=== PATIENT | male | born 1950 | race Caucasian/White ===

== ENCOUNTER 2019-01-30 20:38 | Emergency (ER) | payer OTHER ==
[2019-01-30] MEDS ORDERED: SILVER NITRATE 1 APPL TOP ONE (20:59)
[2019-01-30 21:57] LABS: Albumin 3.6 g/dL (3.4-5.0); Bilirubin Total 0.5 mg/dL (0.2-1.0); Potassium 3.4 mmol/L (3.5-5.1); Protein, Total 6.8 g/dL (6.4-8.2)
[2019-01-30 22:20] LABS: Protime INR 1.69
[2019-01-30 22:37] LABS: Absolute Lymphocytes (CBC) 1.1 K/uL (0.7-4.9); Absolute Monocytes 0.6 K/uL (0.1-1.3); Absolute Neutrophil 5.6 K/uL (1.8-8.0); Basophils % 0.6 % (0-1.3); Eosinophils % 2.9 % (0-4.4); Hematocrit 23.6 % (39.6-49.0); Lymphocytes % 14.6 % (15.3-44.8); MPV 7.3 fL (7.6-11.3); Monocytes % 7.8 % (3.3-12.3); RBC Red Blood Cell Count 2.83 M/uL (4.33-5.43)
--- NOTE | 2019-01-30 22:39 | ER ---
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 Pt has had nose bleeds before and they have used silver nitrate sticks. Pt is on Warfarin 1.5 mg/day. Transition of care: patient was not received from another setting of care. Onset of symptoms was January 30, 2019 at 17:20. Risk Assessment: Do you want to hurt yourself or someone else? Patient reports no desire to harm self or others. Initial Sepsis Screen: Does the patient meet any 2 criteria? No. Patient's initial sepsis screen is negative. Does the patient have a suspected source of infection? No. Patient's initial sepsis screen is negative. Care prior to arrival: None. 20:53 Method Of Arrival: Ambulatory tl2 20:53 Acuity: BRETT 3 tl2 Triage Assessment: 21:01 General: Appears in no apparent distress. comfortable, Behavior is calm, cooperative, tl2 appropriate for age. Pain: Denies pain. Historical: - Allergies: 20:59 Codeine; tl2 20:59 Fentanyl; tl2 - Home Meds: 20:59 aspirin 81 mg Oral chew 1 tab once daily [Active]; carvedilol 25 mg Oral tab 1 tab tl2 daily [Active]; Crestor 5 mg Oral tab 1 tab once daily [Active]; fenofibrate 150 mg Oral cap 1 cap once daily [Active]; ferrous sulfate 325 mg (65 mg iron) Oral tab daily [Active]; furosemide 40 mg Oral tab 1 tab once daily [Active]; Lantus 100 unit/mL Sub-Q soln 26 unit daily [Active]; liraglutide subcutaneous subcutaneous 0.3 mL once daily [Active]; lisinopril 5 mg Oral tab 1 tab twice a day [Active]; Multiple Vitamins Oral tab daily [Active]; potassium chloride 20 mEq Oral TbTQ 1 tab once daily [Active]; rosuvastatin 5 mg Oral tab 1 tab once daily [Active]; tamsulosin 0.4 mg Oral cp24 1 cap once daily [Active]; Warfarin 1.5 mg Oral once daily [Active]; victoza 1.8 mg daily [Active]; - PMHx: 20:59 CAD; CHF; Diabetes - IDDM; Hyperlipidemia; Hypertension; tl2 - PSHx: 20:59 LVAD; CABG; pacemaker; tl2 - Immunization history:: Adult Immunizations up to date. - Social history:: Smoking status: Patient/guardian denies using tobacco. - Ebola Screening: : No symptoms or risks identified at this time. - Family history:: not pertinent. Screenin:01 Abuse screen: Denies threats or abuse. Nutritional screening: No deficits noted. tl2 Tuberculosis screening: No symptoms or risk factors identified. Fall Risk Secondary diagnosis (15 points) Gait- Weak (10 pts.). Assessment: 21:10 General: Appears in no apparent distress. comfortable, Behavior is calm, cooperative, tl2 appropriate for age. Pain: Denies pain. Neuro: Level of Consciousness is awake, alert, obeys commands, Oriented to person, place, time, situation. Cardiovascular: Denies chest pain, LVAD in placed. Respiratory: Airway is patent Respiratory effort is even, unlabored, Respiratory pattern is regular, symmetrical. GI: No signs and/or symptoms were reported involving the gastrointestinal system. : No signs and/or symptoms were reported regarding the genitourinary system. EENT: Nares with bleeding noted bilaterally. Derm: Skin is pale. 22:27 Reassessment: Patient appears in no apparent distress at this time. Patient and/or tl2 family updated on plan of care and expected duration. Pain level reassessed. Patient is alert, oriented x 3, equal unlabored respirations, skin warm/dry/pink. 23:30 Reassessment: Patient appears in no apparent distress at this time. Patient and/or tl2 family updated on plan of care and expected duration. Pain level reassessed. Patient is alert, oriented x 3, equal unlabored respirations, skin warm/dry/pink. 01/31 00:30 Reassessment: Patient appears in no apparent distress at this time. Patient and/or tl2 family updated on plan of care and expected duration. Pain level reassessed. Patient is alert, oriented x 3, equal unlabored respirations, skin warm/dry/pink. 01:14 Reassessment: first unit of blood started at 0114, see transfusion record for vitals. tl2 Reassessment: awaiting transport. Vital Signs: 01/30 20:50 BP 115 / 86; Pulse 73; Resp 18; Temp 97.9; Pulse Ox 100% on R/A; Weight 87.54 kg; tl2 Height 5 ft. 7 in. (170.18 cm); Pain 0/10; 22:24 BP 117 / 96; Pulse 69; Resp 18; Pulse Ox 96% on R/A; tl2 23:26 BP 124 / 101; Pulse 75; Resp 18; Pulse Ox 96% on R/A; tl2 01/31 00:24 BP 116 / 83; Pulse 73; Resp 24; Pulse Ox 99% on R/A; tl2 01:30 BP 106 / 86; Pulse 73; Resp 19; Temp 98.5; Pulse Ox 98% on R/A; tl2 01/30 20:50 Body Mass Index 30.23 (87.54 kg, 170.18 cm) tl2 ED Course: 01/30 20:41 Patient arrived in ED. es 20:50 Arm band placed on right wrist. tl2 20:53 Annabelle Horne, RN is Primary Nurse. tl2 20:55 Triage completed. tl2 21:01 Patient has correct armband on for positive identification. Bed in low position. Call tl2 light in reach. Side rails up X2. Adult w/ patient. 21:05 Cholo Humphreys MD is Attending Physician. kimberly 22:15 Inserted saline lock: 20 gauge in left forearm, using aseptic technique. Blood tl2 collected. 22:24 XRAY Chest (1 view) In Process Unspecified. EDMS 22:39 Notified ED physician of a critical lab result(s). hemoglobin 7.8. fc Administered Medications: 22:42 Not Given (Physician Discretion): NS 0.9% 1000 ml IV at 75 ml/hr continuous tl2 23:01 Drug: ProTONIX 40 mg Route: IVP; Site: left forearm; tl2 01/31 01:58 Follow up: Response: No adverse reaction tl2 Medication: 01:14 Blood products: PRBCs X 1 unit given. See transfusion record. tl2 Outcome: 01/30 22:38 ER care complete, transfer ordered by . kimberly 01/31 01:58 Patient left the ED. tl2 Signatures: Dispatcher [employer] Cholo Nelson MD MD cha Salyer, Janey Burt RN RN Annabelle Sweeney RN RN tl2 Corrections: (The following items were deleted from the chart) 01/30 21:00 20:50 BP 115 / 86; Pulse 73bpm; Resp 18bpm; Pulse Ox 100% RA; Temp 97.9F; tl2 tl2 22:27 21:10 General: see triage assessment. tl2 tl2
--- NOTE | 2019-01-30 22:39 | EDPHYS ---
Physician Documentation [facility] Name: Rod Shrestha Age: 68 yrs Sex: Male : 1950 Arrival Date: 01/30/2019 Time: 20:41 Bed 2 Private MD: ED Cholo Giles HPI: 01/30 21:16 This 68 yrs old Male presents to ER via Ambulatory with complaints of Nose kimberly Bleed. 21:16 The patient presents with a nose bleed. Onset: The symptoms/episode began/occurred just kimberly prior to arrival. Modifying factors: The symptoms are alleviated by nothing. the symptoms are aggravated by nothing. Associated signs and symptoms: The patient has no apparent associated signs or symptoms. Severity of symptoms: At their worst the symptoms were. The patient has not experienced similar symptoms in the past. Historical: - Allergies: 20:59 Codeine; tl2 20:59 Fentanyl; tl2 - Home Meds: 20:59 aspirin 81 mg Oral chew 1 tab once daily [Active]; carvedilol 25 mg Oral tab 1 tab tl2 daily [Active]; Crestor 5 mg Oral tab 1 tab once daily [Active]; fenofibrate 150 mg Oral cap 1 cap once daily [Active]; ferrous sulfate 325 mg (65 mg iron) Oral tab daily [Active]; furosemide 40 mg Oral tab 1 tab once daily [Active]; Lantus 100 unit/mL Sub-Q soln 26 unit daily [Active]; liraglutide subcutaneous subcutaneous 0.3 mL once daily [Active]; lisinopril 5 mg Oral tab 1 tab twice a day [Active]; Multiple Vitamins Oral tab daily [Active]; potassium chloride 20 mEq Oral TbTQ 1 tab once daily [Active]; rosuvastatin 5 mg Oral tab 1 tab once daily [Active]; tamsulosin 0.4 mg Oral cp24 1 cap once daily [Active]; Warfarin 1.5 mg Oral once daily [Active]; victoza 1.8 mg daily [Active]; - PMHx: 20:59 CAD; CHF; Diabetes - IDDM; Hyperlipidemia; Hypertension; tl2 - PSHx: 20:59 LVAD; CABG; pacemaker; tl2 - Immunization history:: Adult Immunizations up to date. - Social history:: Smoking status: Patient/guardian denies using tobacco. - Ebola Screening: : No symptoms or risks identified at this time. - Family history:: not pertinent. ROS: 21:16 Constitutional: Negative for fever, chills, and weight loss, Eyes: Negative for injury, kimberly pain, redness, and discharge, Neck: Negative for injury, pain, and swelling, Cardiovascular: Negative for chest pain, palpitations, and edema, Respiratory: Negative for shortness of breath, cough, wheezing, and pleuritic chest pain, Abdomen/GI: Negative for abdominal pain, nausea, vomiting, diarrhea, and constipation, Back: Negative for injury and pain, : Negative for injury, bleeding, discharge, and swelling, MS/Extremity: Negative for injury and deformity, Skin: Negative for injury, rash, and discoloration, Neuro: Negative for headache, weakness, numbness, tingling, and seizure, Psych: Negative for depression, anxiety, suicide ideation, homicidal ideation, and hallucinations, Allergy/Immunology: Negative for hives, rash, and allergies, Endocrine: Negative for neck swelling, polydipsia, polyuria, polyphagia, and marked weight changes. 21:16 ENT: Positive for nose bleed. Exam: 21:16 Constitutional: This is a well developed, well nourished patient who is awake, alert, kimberly and in no acute distress. Head/Face: Normocephalic, atraumatic. Eyes: Pupils equal round and reactive to light, extra-ocular motions intact. Lids and lashes normal. Conjunctiva and sclera are non-icteric and not injected. Cornea within normal limits. Periorbital areas with no swelling, redness, or edema. Neck: Trachea midline, no thyromegaly or masses palpated, and no cervical lymphadenopathy. Supple, full range of motion without nuchal rigidity, or vertebral point tenderness. No Meningismus. Chest/axilla: Normal chest wall appearance and motion. Nontender with no deformity. No lesions are appreciated. Cardiovascular: Regular rate and rhythm with a normal S1 and S2. No gallops, murmurs, or rubs. Normal PMI, no JVD. No pulse deficits. Respiratory: Lungs have equal breath sounds bilaterally, clear to auscultation and percussion. No rales, rhonchi or wheezes noted. No increased work of breathing, no retractions or nasal flaring. Abdomen/GI: Soft, non-tender, with normal bowel sounds. No distension or tympany. No guarding or rebound. No evidence of tenderness throughout. Back: No spinal tenderness. No costovertebral tenderness. Full range of motion. Skin: Warm, dry with normal turgor. Normal color with no rashes, no lesions, and no evidence of cellulitis. MS/ Extremity: Pulses equal, no cyanosis. Neurovascular intact. Full, normal range of motion. Neuro: Awake and alert, GCS 15, oriented to person, place, time, and situation. Cranial nerves II-XII grossly intact. Motor strength 5/5 in all extremities. Sensory grossly intact. Cerebellar exam normal. Normal gait. Psych: Awake, alert, with orientation to person, place and time. Behavior, mood, and affect are within normal limits. 21:16 ENT: Nose: Nasal mucosa: Dried blood. edematous. Vital Signs: 20:50 BP 115 / 86; Pulse 73; Resp 18; Temp 97.9; Pulse Ox 100% on R/A; Weight 87.54 kg; tl2 Height 5 ft. 7 in. (170.18 cm); Pain 0/10; 22:24 BP 117 / 96; Pulse 69; Resp 18; Pulse Ox 96% on R/A; tl2 23:26 BP 124 / 101; Pulse 75; Resp 18; Pulse Ox 96% on R/A; tl2 03/06 00:24 BP 116 / 83; Pulse 73; Resp 24; Pulse Ox 99% on R/A; tl2 01:30 BP 106 / 86; Pulse 73; Resp 19; Temp 98.5; Pulse Ox 98% on R/A; 2 03 20:50 Body Mass Index 30.23 (87.54 kg, 170.18 cm) tl2 Procedures: 01/30 21:16 Epistaxis treatment: A moderate amount of bleeding noted from left nare. [facility] 22:33 Epistaxis treatment: Treated using anterior packing, Vaseline gauze, Bleeding stopped. [facility] MDM: 21:05 Patient medically screened. [facility] 21:16 Data reviewed: vital signs, nurses notes, lab test result(s). [facility] 01/30 21:16 Order name: CBC with Diff [facility] 01/30 21:16 Order name: Comprehensive Metabolic Panel; Complete Time: 22:10 [facility] 01/30 21:16 Order name: PT-INR; Complete Time: 22:36 [facility] 01/30 22:11 Order name: Basic Metabolic Panel [facility] 01/30 22:11 Order name: LFT's [facility] 01/30 22:11 Order name: Magnesium [facility] 01/30 22:11 Order name: NT PRO-BNP [facility] 01/30 22:11 Order name: Troponin (emerg Dept Use Only) [facility] 01/30 22:11 Order name: XRAY Chest (1 view) [facility] 01/30 22:11 Order name: Type And Screen [facility] 01/30 23:08 Order name: ABO/RH no charge [facility] 01/31 00:47 Order name: Packed RBC Leukored -1 [facility] 01/30 21:32 Order name: Dressing - Wound; Complete Time: 22:42 [facility] 01/30 21:32 Order name: Gloves, Sterile; Complete Time: 21:36 [facility] 01/30 21:32 Order name: Setup Suture Tray; Complete Time: 21:36 [facility] 01/30 22:11 Order name: EKG; Complete Time: 22:13 [facility] 01/30 22:11 Order name: Cardiac monitoring; Complete Time: 22:42 [facility] 01/30 22:11 Order name: EKG - Nurse/Tech; Complete Time: 22:41 [facility] 01/30 22:11 Order name: IV Saline Lock; Complete Time: 22:12 [facility] 01/30 22:11 Order name: Labs collected and sent; Complete Time: 22:13 [facility] 01/30 22:11 Order name: O2 Per Protocol; Complete Time: 22:13 [facility] 01/30 22:11 Order name: O2 Sat Monitoring; Complete Time: 22:13 [facility] 01/30 22:35 Order name: Transfuse; Complete Time: 01:56 [facility] Administered Medications: 22:42 Not Given (Physician Discretion): NS 0.9% 1000 ml IV at 75 ml/hr continuous tl2 23:01 Drug: ProTONIX 40 mg Route: IVP; Site: left forearm; tl2 01/31 01:58 Follow up: Response: No adverse reaction tl2 Disposition: 01/30/19 22:38 Transfer ordered to [facility]. Diagnosis are Epistaxis, Anemia, unspecified, Unspecified kidney failure, Unspecified combined systolic (congestive) and diastolic (congestive) heart failure - with LVAT, Hypokalemia. - Reason for transfer: Higher level of care. - Accepting physician is to buddhism, chf team. - Condition is Fair. - Problem is new. - Symptoms have improved. Signatures: Dispatcher [employer] EDCholo Wagner MD MD cha Knox, Taylor, RN RN tl2 Corrections: (The following items were deleted from the chart) 01/30 22:38 22:38 01/30/2019 22:38 Transfer ordered to [facility]. Diagnosis is kimberly Epistaxis; Anemia, unspecified; Unspecified kidney failure; Unspecified combined systolic (congestive) and diastolic (congestive) heart failure - with LVAT. Reason for transfer: Higher level of care. Accepting physician is to buddhism, [facility] team. Condition is Fair. Problem is new. Symptoms have improved. kimberly 01/31 01:58 01/30 22:38 01/30/2019 22:38 Transfer ordered to [facility]. tl2 Diagnosis is Epistaxis; Anemia, unspecified; Unspecified kidney failure; Unspecified combined systolic (congestive) and diastolic (congestive) heart failure - with LVAT; Hypokalemia. Reason for transfer: Higher level of care. Accepting physician is to buddhism, chf team. Condition is Fair. Problem is new. Symptoms have improved. kimberly
[2019-01-30] MEDS ORDERED: PANTOPRAZOLE 40 MG INJ ONE (23:08)
[2019-01-30 23:10] LABS: ALT/SGPT 14 U/L (12-78); AST/SGOT 14 U/L (15-37); Albumin 3.7 g/dL (3.4-5.0); Alkaline Phosphatase 50 U/L (45-117); BUN Blood Urea Nitrogen 25 mg/dL (7-18); Bicarbonate 28 mmol/L (21-32); Bilirubin Direct 0.2 mg/dL (0-0.2); Bilirubin Total 0.4 mg/dL (0.2-1.0); Glucose Level 260 mg/dL (74-106); Magnesium 2.3 mg/dL (1.8-2.4); NT PRO-BNP 2086 pg/mL (<125); Potassium 3.5 mmol/L (3.5-5.1); Protein, Total 6.9 g/dL (6.4-8.2); Sodium Level 140 mmol/L (136-145); Troponin (Emerg Dept Use Only) < 0.02 ng/mL (0.0-0.045)
[2019-01-31] MEDS ORDERED: NA CHLORIDE 0.9% 250 ML ONE (01:20)
[2019-01-31 02:09] VITALS: BP 106/86; TEMP 98.5; O2SAT 98
--- NOTE | 2019-01-31 08:19 | RAD REPORT ---
EXAM DESCRIPTION: RAD - Chest Single View - 01/30/2019 10:24 pm CLINICAL HISTORY: COUGH Chest pain. COMPARISON: CHEST SINGLE VIEW dated 08/07/2014; CHEST SINGLE VIEW dated 04/28/2014 FINDINGS: Portable technique limits examination quality. Mild elevation of the right hemidiaphragm is seen, chronic. Blunting of both costophrenic angles like ly represents pleural effusions or pleural thickening. The lungs are clear of acute infiltrate. Heart is moderately enlarged in size with dual lead pacer device present. No displaced fractures.Sternotom y wires present. IMPRESSION: No acute intrathoracic process suspected.
--- NOTE | 2019-01-31 12:36 | EKG ---
Test Date: 2019-01-30 Test Time: 22:33:04 [place]ock Judge: CAROLEE MEASUREMENT RESULTS: Intervals: Rate: 72 LA: QRSD: 162 QT: 478 QTc: 523 [place]: P: LA: QRS: -52 T: 132 INTERPRETIVE STATEMENTS: Atrial-sensed ventricular-paced rhythm tracking sinus rhythm with premature atrial complexes Abnormal ECG Compared to ECG 08/09/2014 15:27:28 Atrial-sensed ventricular-paced rhythm is now present Electronically Signed On 01-31-19 12:36:24 [employer]ANT [employer] by Epifanio Ortiz
== END 2019-01-31 01:58 | disposition short-term general hospital (02) ==
LOC: ER 20:38
PROC: 2Y41X5Z Packing of Nasal Region using Packing Material (ICD-10-PCS; principal; 2019-01-31)
PROC: 30233N1 Transfusion of Nonautologous Red Blood Cells into Peripheral Vein, Percutaneous Approach (ICD-10-PCS; 2019-01-31)
DX: I12.9 Hypertensive chronic kidney disease with stage 1 through stage 4 chronic kidney disease, or unspecified chronic kidney disease (principal); D63.1 Anemia in chronic kidney disease; E11.22 Type 2 diabetes mellitus with diabetic chronic kidney disease; I50.40 Unspecified combined systolic (congestive) and diastolic (congestive) heart failure; E87.6 Hypokalemia; N18.9 Chronic kidney disease, unspecified; N17.9 Acute kidney failure, unspecified; Z79.4 Long term (current) use of insulin; Z79.01 Long term (current) use of anticoagulants; Z79.82 Long term (current) use of aspirin; Z88.5 Allergy status to narcotic agent; Z88.8 Allergy status to other drugs, medicaments and biological substances; Z95.1 Presence of aortocoronary bypass graft; Z95.810 Presence of automatic (implantable) cardiac defibrillator
CPT/HCPCS: 30901; 36415; 36430; 71045; 80048; 80053; 80076; 83735; 83880; 84484; 85025; 85610; 86850; 86900; 86901; 93005; 96374; 99284; C9113; P9016

== ENCOUNTER 2021-09-22 07:43 | Emergency (ER) | payer OTHER ==
[2021-09-22 08:32] LABS: Protime INR 1.64
[2021-09-22 08:34] LABS: Absolute Lymphocytes (CBC) 0.8 K/uL (0.7-4.9); Basophils % 0.4 % (0-1.3); Hematocrit 26.3 % (39.6-49.0); Lymphocytes % 11.2 % (15.3-44.8); MPV 7.4 fL (7.6-11.3); RBC Red Blood Cell Count 3.23 M/uL (4.33-5.43)
--- NOTE | 2021-09-22 09:23 | RAD REPORT ---
EXAM DESCRIPTION: Joe Single View09/22/2021 8:30 am CLINICAL HISTORY: Chest pain COMPARISON: 2014 FINDINGS: The lungs appear clear of acute infiltrate. The heart is mildly enlarged. Pacemaker leads are in place. Postsurgical changes involve the chest. Chronic elevation right hemidiaphragm IMPRESSION: No acute abnormalities displayed
--- NOTE | 2021-09-22 09:26 | RAD REPORT ---
EXAM DESCRIPTION: CT - Head Brain Wo Cont - 09/22/2021 8:44 am CLINICAL HISTORY: Dizziness COMPARISON: 2014 TECHNIQUE: Computed axial tomography of the head was obtained. IV contrast was not requested. All CT scans are performed using dose optimization technique as appropriate and may include automated exposure control or mA/KV adjustment according to patient size. FINDINGS: An intracranial bleed is not seen . The ventricles are normal in caliber. No extra-axial fluid collection is noted. Moderate low-density areas within periventricular, deep and subcortical white matter likely represent ischemic changes secondary to small vessel disease. 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 Fluid within the sinuses/ mastoids is not seen. Chronic sphenoid sinusitis IMPRESSION: No acute intracranial abnormality is seen. If patient's symptoms persist MRI of the bra in would be recommended.
[2021-09-22 10:52] LABS: Albumin 3.5 g/dL (3.4-5.0); Bilirubin Direct 0.2 mg/dL (0-0.2); Bilirubin Total 0.5 mg/dL (0.2-1.0); Magnesium 1.9 mg/dL (1.8-2.4); Potassium 4.1 mmol/L (3.5-5.1); Troponin (Emerg Dept Use Only) 0.02 ng/mL (0.0-0.045)
--- NOTE | 2021-09-22 12:13 | EKG ---
Test Date: 2021-09-22 Test Time: 07:52:10 Concrete Mason: VICTOR MANUEL MEASUREMENT RESULTS: Intervals: Rate: 64 MI: QRSD: 150 QT: 420 QTc: 433 [place]: P: MI: QRS: -57 T: 121 INTERPRETIVE STATEMENTS: Wide QRS rhythm with frequent and consecutive premature ventricular complexes with ventricular escape complexes Left axis deviation Left ventricular hypertrophy with QRS widening and repolarization abnormality Lateral infarct, age undetermined Inferior infarct, age undetermined Abnormal ECG Compared to ECG 01/30/2019 22:33:04 Uncertain supraventricular rhythm now present Ventricular escape complex(es) now present Ventricular premature complex(es) now present Left-axis deviation now present Left ventricular hypertrophy now present Electronically Signed On 09-22-21 12:12:41 CDT by Markos Villa
--- NOTE | 2021-09-22 12:46 | EDPHYS ---
Physician Documentation [facility] Name: Rod Shrestha Age: 71 yrs Sex: Male : 1950 Arrival Date: 09/22/2021 Time: 07:47 Bed 4 Private MD: Kori Allen C ED Physician Luis Lozoya HPI: 09/22 08:07 This 71 yrs old Male presents to ER via EMS with complaints of Aphasia . jr8 08:07 The patient's problem is reported as dysphasia, incoherent speech, expressive aphasia. jr8 Onset: The symptoms/episode began/occurred acutely, just prior to arrival, today. Duration: This was a single incident, lasting 15 minute(s). Context: the episode(s) was witnessed, by family, occurred at home, occurred while the patient was at rest. The symptoms are alleviated by nothing. The symptoms are aggravated by nothing. Associated signs and symptoms: The patient has no apparent associated signs or symptoms. Severity of symptoms: At their worst the symptoms were moderate in the emergency department the symptoms have resolved and did so just prior to arrival. Patient's baseline: Neuro: alert and fully oriented, Motor: no deficits, Ambulation: walks without assistance, Speech: normal. The patient has not experienced similar symptoms in the past. The patient has not recently seen a physician. Family stated that patient had just finished breakfast and went to his room. heard him yell out for her. When she got there he had "word salad" like speech and expressive aphasia. Symptoms lasted approximately 15 minutes. EMS was called at that time. Symptoms had resolved prior to EMS arrival. Patient currently alert and oriented x4 with no complaints at this time. Patient with history of LVAD.. Historical: - Allergies: 07:48 Codeine; jl7 07:48 Fentanyl; jl7 07:48 Xanax; jl7 - Home Meds: 07:48 digoxin 125 mcg (0.125 mg) Oral tab 1 tab once daily [Active]; fenofibrate 150 mg Oral jl7 cap 1 cap once daily [Active]; ferrous sulfate 325 mg (65 mg iron) Oral tab daily [Active]; Lantus 100 unit/mL Sub-Q soln 26 unit daily [Active]; liraglutide subcutaneous 0.3 mL once daily [Active]; losartan 25 mg oral tab 2 tabs once daily [Active]; Multiple Vitamins Oral tab daily [Active]; Protonix 40 mg Oral TbEC 1 tab once daily [Active]; rosuvastatin 5 mg Oral tab 1 tab once daily [Active]; Senokot S Oral [Active]; spironolactone 25 mg Oral tab 0.5 tab once daily [Active]; tamsulosin 0.4 mg Oral cp24 1 cap once daily [Active]; warfarin oral once daily [Active]; - PMHx: 07:48 CAD; CHF; Diabetes - IDDM; Hyperlipidemia; Hypertension; jl7 - PSHx: 07:48 LVAD; jl7 - Immunization history:: Adult Immunizations up to date, Client reports receiving the 2nd dose of the Covid vaccine. - Social history:: Smoking status: Patient denies any tobacco usage or history of. ROS: 08:07 Eyes: Negative for injury, pain, redness, and discharge, ENT: Negative for injury, jr8 pain, and discharge, Neck: Negative for injury, pain, and swelling, Cardiovascular: Negative for chest pain, palpitations, and edema, Respiratory: Negative for shortness of breath, cough, wheezing, and pleuritic chest pain, Abdomen/GI: Negative for abdominal pain, nausea, vomiting, diarrhea, and constipation, Back: Negative for injury and pain, MS/Extremity: Negative for injury and deformity, Skin: Negative for injury, rash, and discoloration. 08:07 Neuro: Positive for speech changes. Exam: 08:07 Constitutional: This is a well developed, well nourished patient who is awake, alert, jr8 and in no acute distress. Eyes: Pupils equal round and reactive to light, extra-ocular motions intact. Lids and lashes normal. Conjunctiva and sclera are non-icteric and not injected. Cornea within normal limits. Periorbital areas with no swelling, redness, or edema. ENT: Nares patent. No nasal discharge, no septal abnormalities noted. Tympanic membranes are normal and external auditory canals are clear. Oropharynx with no redness, swelling, or masses, exudates, or evidence of obstruction, uvula midline. Mucous membranes moist. Neck: Trachea midline, no thyromegaly or masses palpated, and no cervical lymphadenopathy. Supple, full range of motion without nuchal rigidity, or vertebral point tenderness. No Meningismus. Cardiovascular: Patient is a rate of 68 irregularly irregular rhythm. Harsh consistent vibrating holosystolic murmur consistent with his LVAD present. No pulse deficits. Respiratory: Lungs have equal breath sounds bilaterally, clear to auscultation and percussion. No rales, rhonchi or wheezes noted. No increased work of breathing, no retractions or nasal flaring. Abdomen/GI: Soft, non-tender, with normal bowel sounds. No distension or tympany. No guarding or rebound. No evidence of tenderness throughout. Skin: Warm, dry with normal turgor. Normal color with no rashes, no lesions, and no evidence of cellulitis. MS/ Extremity: Pulses equal, no cyanosis. Neurovascular intact. Full, normal range of motion. Neuro: Awake and alert, GCS 15, oriented to person, place, time, and situation. Cranial nerves II-XII grossly intact. Motor strength 5/5 in all extremities. Sensory grossly intact. Cerebellar exam normal. Normal gait. 08:46 ECG was reviewed by the Attending Physician. jr8 12:21 Radiologist reports: No acute findings jr8 Vital Signs: 07:45 BP 121 / 79; Pulse 68; Resp 17; Temp 98; Pulse Ox 100% ; Weight 71.67 kg; Height 5 ft. bp 7 in. (170.18 cm); 08:55 BP 138 / 79; Pulse 60; Resp 16; Pulse Ox 98% ; bp 09:40 BP 120 / 82; Pulse 65; Resp 19; Pulse Ox 100% on R/A; ap3 11:02 BP 141 / 81; Pulse 66; Resp 21; Pulse Ox 96% ; bp 12:05 BP 142 / 78; Pulse 63; Resp 17; Pulse Ox 100% ; bp 13:10 BP 122 / 82; Pulse 63; Resp 18; Pulse Ox 99% ; bp 07:45 Body Mass Index 24.75 (71.67 kg, 170.18 cm) bp NIH Stroke Scale Scores: 08:07 NIHSS Score: 1 jr8 MDM: 07:59 Patient medically screened. jr8 11:57 Data reviewed: vital signs, nurses notes, lab test result(s), EKG, radiologic studies, jr8 CT scan, plain films. Data interpreted: Pulse oximetry: on room air is 96 %. Interpretation: normal. Counseling: I had a detailed discussion with the patient and/or guardian regarding: the historical points, exam findings, and any diagnostic results supporting the discharge/admit diagnosis, lab results, radiology results, the need to transfer to another facility, [facility] does not immediately have the required specialist. ED course: Discussed with patient and family that based on his symptoms it appears that he has had either a transient ischemic attack versus small CVA. Recommended transfer to [facility] as his LVAD coordination is there and that the strokes could be related to the LVAD. Family and patient good with this. [facility] has been called and is working on room assignment.. 09/22 12:55 Order name: Basic Metabolic Panel EDMS 09/22 12:55 Order name: Liver (Hepatic) Function EDMS 09/22 12:55 Order name: Troponin (Emerg Dept Use Only) EDMS 09/22 12:55 Order name: NT PRO-BNP EDMS 09/22 12:55 Order name: Magnesium EDMS 09/22 12:55 Order name: CBC with Automated Diff EDMS 09/22 08:01 Order name: XRAY Chest (1 view) bp 09/22 08:01 Order name: EKG; Complete Time: 12:47 bp 09/22 08:01 Order name: Cardiac monitoring; Complete Time: 08: bp 09/22 08:01 Order name: EKG - Nurse/Tech; Complete Time: 08: bp 09/22 08:01 Order name: IV Saline Lock; Complete Time: 08: bp 09/22 08:01 Order name: Labs collected and sent; Complete Time: 08: bp 09/22 08:01 Order name: O2 Per Protocol; Complete Time: 08: bp 09/22 08:01 Order name: O2 Sat Monitoring; Complete Time: 08: bp 09/22 08:01 Order name: CT Head Brain wo Cont bp 09/22 12:45 Order name: RAD; Complete Time: 12:45 EDMS 09/22 12:45 Order name: CT; Complete Time: 12:45 EDMS 09/22 12:55 Order name: Protime (+INR) EDMS 09/22 13:04 Order name: EKG Electrocardiogram EDMS 09/22 13:18 Order name: SARS-COV-2 RT PCR EDMS EC:46 Rate is 64 beats/min. Rhythm is irregular, Sinus arrythmia. Left axis deviation noted. jr8 QRS interval is prolonged at 150 msec. QT interval is normal. T waves are Inverted in leads I, aVL, V1, V2. No ST changes noted. Clinical impression: Abnormal EKG without significant change. Interpreted by me. Reviewed by me. Administered Medications: No medications were administered Disposition: 16:29 Co-signature as Attending Physician, Luis Lozoya MD. rn 16:29 I agree with the assessment and plan of care. 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 HPI: 71-year-old male presents with strokelike symptoms of word salad and difficulty speaking along with confusion. Denies any sort of trauma. Patient has LVAD. No new medication. My personal exam of patient reveals: 71-year-old male, no acute distress, appears slightly confused but otherwise normal neurological exam that is nonlateralizing. I agree with assessment and care plan and confirm the diagnosis (es) above. Disposition Summary: 09/22/21 12:20 Transfer Ordered Transfer Location: [facility] jr8 Reason: Higher level of care jr8 Condition: Stable jr8 Problem: new jr8 Symptoms: have improved jr8 Accepting Physician: Dr. Solis(09/22/21 13:50) bp Diagnosis - Transient cerebral ischemic attack, unspecified jr8 Forms: - Medication Reconciliation Form jr8 - SBAR form jr8 NIH Stroke Scale - NIH Stroke Score Date: 09/22/2021 Time: 08:07 Total Score = 1 1a. Level of Consciousness (LOC) - 0(Alert) 1b. Level of Consciousness (LOC) (Month \\T\\ Age) - 1(One) 1c. LOC Commands (Open \\T\\ Closes Eyes/Drilling Machine Runner) - 0(Both) 2. Best Gaze (Lateral Gaze Paresis) - 0(Normal) 3. Visual Field Loss - 0(No visual loss) 4. Facial Palsy - 0(Normal) 5a. Left Arm: Motor (10-second hold) - 0(No drift) 5b. Right Arm: Motor (10-second hold) - 0(No drift) 6a. Left Leg: Motor (5-second hold - always test supine) - 0(No drift) 6b. Right Leg: Motor (5-second hold - always test supine) - 0(No drift) 7. Limb Ataxia (finger/nose \\T\\ heel/de jesus - test with eyes open) - 0(Absent) 8. Sensory Loss (pinprick arms/legs/face) - 0(Normal) 9. Best Language: Aphasia (description/naming/reading) - 0(No aphasia) 10. Dysarthria (speech clarity - read or repeat words) - 0(Normal) 11. Extinction and Inattention (visual/tactile/auditory/spatial/personal) - 0(No abnormality) Initials: jrAsher Signatures: Dispatcher [employer] EDMS Luis Lozoya MD MD rn Roszak, Josh, PA PA jr8 Halie Ren RN RN jl7 Raul Duran, RN RN bp Corrections: (The following items were deleted from the chart) 13:50 12:20 Dr. Solis jr8 bp
--- NOTE | 2021-09-22 12:46 | ER ---
Nurse's Notes [facility] Name: Rod Shrestha Age: 71 yrs Sex: Male : 1950 Arrival Date: 09/22/2021 Time: 07:47 Bed 4 Private MD: Kori Allen C Diagnosis: Transient cerebral ischemic attack, unspecified Presentation: 09/22 07:45 Chief complaint: EMS states: ACUTE CONFUSION FOR 15-20 MINUTE, S/S NOW RESOLVED. bp Coronavirus screen: At this time, the client does not indicate any symptoms associated with coronavirus-19. Ebola Screen: No symptoms or risks identified at this time. 07:45 Method Of Arrival: EMS: [facility] bp 07:45 Initial Sepsis Screen: Does the patient meet any 2 criteria? No. Patient's initial bp sepsis screen is negative. Does the patient have a suspected source of infection? No. Patient's initial sepsis screen is negative. Risk Assessment: Do you want to hurt yourself or someone else? Patient reports no desire to harm self or others. Onset of symptoms was September 22, 2021 at 06:30. Care prior to arrival: Glucose check: 154. 07:45 Acuity: BRETT 3 bp 07:45 Method Of Arrival: EMS: [facility] bp Triage Assessment: 07:45 General: Appears in no apparent distress. comfortable, slender, well groomed, Behavior bp is calm, cooperative, appropriate for age. Pain: Denies pain. EENT: No deficits noted. Neuro: Level of Consciousness is awake, alert, obeys commands. Cardiovascular: No deficits noted. Respiratory: No deficits noted. GI: No signs and/or symptoms were reported involving the gastrointestinal system. : No signs and/or symptoms were reported regarding the genitourinary system. Derm: No deficits noted. Musculoskeletal: No deficits noted. Historical: - Allergies: 07:48 Codeine; jl7 07:48 Fentanyl; jl7 07:48 Xanax; jl7 - Home Meds: 07:48 digoxin 125 mcg (0.125 mg) Oral tab 1 tab once daily [Active]; fenofibrate 150 mg Oral jl7 cap 1 cap once daily [Active]; ferrous sulfate 325 mg (65 mg iron) Oral tab daily [Active]; Lantus 100 unit/mL Sub-Q soln 26 unit daily [Active]; liraglutide subcutaneous 0.3 mL once daily [Active]; losartan 25 mg oral tab 2 tabs once daily [Active]; Multiple Vitamins Oral tab daily [Active]; Protonix 40 mg Oral TbEC 1 tab once daily [Active]; rosuvastatin 5 mg Oral tab 1 tab once daily [Active]; Senokot S Oral [Active]; spironolactone 25 mg Oral tab 0.5 tab once daily [Active]; tamsulosin 0.4 mg Oral cp24 1 cap once daily [Active]; warfarin oral once daily [Active]; - PMHx: 07:48 CAD; CHF; Diabetes - IDDM; Hyperlipidemia; Hypertension; jl7 - PSHx: 07:48 LVAD; jl7 - Immunization history:: Adult Immunizations up to date, Client reports receiving the 2nd dose of the Covid vaccine. - Social history:: Smoking status: Patient denies any tobacco usage or history of. Screenin:45 Abuse screen: Denies threats or abuse. Denies injuries from another. Nutritional bp screening: No deficits noted. Tuberculosis screening: No symptoms or risk factors identified. Fall Risk None identified. Assessment: 07:45 General: SEE TRIAGE NOTE. bp 08:54 Reassessment: PT RETURNED FROM CT. Neuro: Level of Consciousness is awake, alert, obeys bp commands, Oriented to person, place, time, situation. 11:02 Reassessment: No changes from previously documented assessment. Patient and/or family bp updated on plan of care and expected duration. Pain level reassessed. Patient is alert, oriented x 3, equal unlabored respirations, skin warm/dry/pink. ALL CURRENT ORDERS COMPLETE, RESULTS PENDING. 12:05 Reassessment: No changes from previously documented assessment. Patient and/or family bp updated on plan of care and expected duration. Pain level reassessed. [facility] INITIATED. 13:10 Reassessment: REPORT TO JOSE CARLOS SALGAD[facility] FOR [facility]. TRANSPORT PENDING. bp 13:38 Reassessment: [facility] AT B/S. bp Vital Signs: 07:45 BP 121 / 79; Pulse 68; Resp 17; Temp 98; Pulse Ox 100% ; Weight 71.67 kg; Height 5 ft. bp 7 in. (170.18 cm); 08:55 BP 138 / 79; Pulse 60; Resp 16; Pulse Ox 98% ; bp 09:40 BP 120 / 82; Pulse 65; Resp 19; Pulse Ox 100% on R/A; ap3 11:02 BP 141 / 81; Pulse 66; Resp 21; Pulse Ox 96% ; bp 12:05 BP 142 / 78; Pulse 63; Resp 17; Pulse Ox 100% ; bp 13:10 BP 122 / 82; Pulse 63; Resp 18; Pulse Ox 99% ; bp 07:45 Body Mass Index 24.75 (71.67 kg, 170.18 cm) bp NIH Stroke Scale Scores: 08:07 NIHSS Score: 1 jr8 ED Course: 07:45 Arm band placed on. bp 07:45 Patient has correct armband on for positive identification. Allergy band placed. Bed in bp low position. Call light in reach. Side rails up X2. 07:47 Patient arrived in ED. as 07:47 Kori Allen MD is Private Physician. as 07:49 Inserted saline lock: 20 gauge in right antecubital area, using aseptic technique. ap3 Blood collected. 07:56 Raul Duran RN is Primary Nurse. bp 07:56 EKG done, by ED staff, reviewed by Cholo CARNES. em1 07:59 Cholo Bryan PA is PHCP. jr8 07:59 Luis Lozoya MD is Attending Physician. jr8 08:05 Triage completed. bp 11:40 initiated transfer to [facility]. bd 12:26 Neurologist Pedro CEDENO CALLED FROM [facility] WITH [employer]ATION [employer]OVAL bd \[id number] NOTIFIED RAUL SALGADO TO GIVE REPORT. 13:39 No provider procedures requiring assistance completed. Patient transferred, IV remains bp in place. Administered Medications: No medications were administered Outcome: 12:20 ER care complete, transfer ordered by . jr8 13:40 Transferred by ground EMS to [facility]. bp 13:40 Condition: stable 13:40 Instructed on the need for transfer. 13:50 Patient left the ED. bp NIH Stroke Scale - NIH Stroke Score Date: 09/22/2021 Time: 08:07 Total Score = 1 1a. Level of Consciousness (LOC) - 0(Alert) 1b. Level of Consciousness (LOC) (Month \T\ Age) - 1(One) 1c. LOC Commands (Open \T\ Closes Eyes/Castables Worker) - 0(Both) 2. Best Gaze (Lateral Gaze Paresis) - 0(Normal) 3. Visual Field Loss - 0(No visual loss) 4. Facial Palsy - 0(Normal) 5a. Left Arm: Motor (10-second hold) - 0(No drift) 5b. Right Arm: Motor (10-second hold) - 0(No drift) 6a. Left Leg: Motor (5-second hold - always test supine) - 0(No drift) 6b. Right Leg: Motor (5-second hold - always test supine) - 0(No drift) 7. Limb Ataxia (finger/nose \T\ heel/de jesus - test with eyes open) - 0(Absent) 8. Sensory Loss (pinprick arms/legs/face) - 0(Normal) 9. Best Language: Aphasia (description/naming/reading) - 0(No aphasia) 10. Dysarthria (speech clarity - read or repeat words) - 0(Normal) 11. Extinction and Inattention (visual/tactile/auditory/spatial/personal) - 0(No abnormality) Initials: jr8 Signatures: Adilene Baez, Dianelys Mao, Porfirio em1 Cholo Bryan PA PA jr8 Halie Ren RN RN jl7 Raul Duran, NAOIM SALGADO bp Angélica Romero RN RN ap3
[2021-09-22 16:30] VITALS: TEMP 98
[2021-09-22 16:36] VITALS: BP 122/82; O2SAT 99
== END 2021-09-22 13:50 | disposition short-term general hospital (02) ==
LOC: ER 07:43
DX: G45.9 Transient cerebral ischemic attack, unspecified (principal); R29.701 NIHSS score 1; I10 Essential (primary) hypertension; E11.9 Type 2 diabetes mellitus without complications; E78.5 Hyperlipidemia, unspecified; Z79.01 Long term (current) use of anticoagulants; Z79.4 Long term (current) use of insulin; Z88.5 Allergy status to narcotic agent; Z20.822 Contact with and (suspected) exposure to COVID-19
CPT/HCPCS: 93005; 85025; 80048; 36415; 83735; 85610; 80076; 84484; 83880; 70450; 71045; 99285; U0003

== ENCOUNTER 2022-05-04 21:15 | Emergency (ER) | payer OTHER ==
--- NOTE | 2022-05-04 22:03 | RAD REPORT ---
EXAM DESCRIPTION: CT - Head Brain Wo Cont - 05/04/2022 9:57 pm CLINICAL HISTORY: Mental status change, unknown cause Headache, drowsiness COMPARISON: Head Brain Wo Cont dated 09/22/2021; HEAD BRAIN W O CONTRAST dated 01/24/2015 TECHNIQUE: All CT scans are performed using dose optimization technique as appropriate and may inclu de automated exposure control or mA/KV adjustment according to patient size. 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 Chronic sphenoid sinusitis. The calvarium is intact. Aortic atherosclerosis. IMPRESSION: No acute intracranial abnormality.
--- NOTE | 2022-05-04 22:30 | RAD REPORT ---
EXAM DESCRIPTION: RAD - Chest Single View - 05/04/2022 10:19 pm CLINICAL HISTORY: AMS Chest pain. COMPARISON: Chest Single View dated 09/22/2021; Chest Single View dated 01/30/2019; CHEST SINGLE VIEW dated 08/07/2014; CHEST SINGLE VIEW dated 04/28/2014 FINDINGS: Portable technique limits examination quality. Chronic elevation the right hemidiaphragm is noted. Mild atelectasis is noted in the right lung base. Mild interstitial pulmonary edema suspected. The heart is moderately enlarged in size with multilead pacer device present. Postsurgical changes are present. IMPRESSION: Mild CHF.
[2022-05-04 22:33] LABS: Urine Blood Trace-intact (Negative); Urine Glucose 1+ (Negative); Urine Protein Negative (Negative); Urine Specific Gravity 1.015 (1.005-1.030)
[2022-05-04 23:10] LABS: Urine Bacteria <20 /HPF (NONE SEEN); Urine RBC <5 /HPF (NONE SEEN); Urine Yeast MANY (NONE SEEN)
[2022-05-05 00:16] LABS: Absolute Lymphocytes (CBC) 1.1 K/uL (0.7-4.9); Hematocrit 29.8 % (39.6-49.0); MPV 7.3 fL (7.6-11.3); RBC Red Blood Cell Count 3.57 M/uL (4.33-5.43)
[2022-05-05 00:23] LABS: Protime INR 1.73
[2022-05-05 00:39] LABS: Albumin 3.3 g/dL (3.4-5.0); Bilirubin Direct 0.2 mg/dL (0-0.2); Bilirubin Total 0.4 mg/dL (0.2-1.0); Magnesium 1.7 mg/dL (1.8-2.4); Potassium 4.3 mmol/L (3.5-5.1); Protein, Total 6.5 g/dL (6.4-8.2); Troponin High Sensitivity 27.4 pg/mL (<58.9)
--- NOTE | 2022-05-05 02:18 | EDPHYS ---
Physician Documentation [facility] Name: Rod Shrestha Age: 71 yrs Sex: Male : 1950 Arrival Date: 05/04/2022 Time: 21:27 Bed 14 Private MD: ED Physician Hugo Gardner HPI: 05/04 21:40 This 71 yrs old Male presents to ER via Unassigned with complaints of Confusion. mh7 21:40 The patient presents with confusion. Onset: The symptoms/episode began/occurred today, mh7 at 19:30. Possible causes: UTI. Associated signs and symptoms: Pertinent negatives: abdominal pain, agitation, ataxia, blurred vision, chest pain, combativeness, diaphoresis, diarrhea, dizziness, headache, lightheadedness, nausea, numbness, palpitations, seizure, shortness of breath, tingling, vertigo, vomiting, weakness. Current symptoms: In the emergency department the patient's symptoms have improved, moderately. Patient's baseline: Neuro: alert and fully oriented, Motor: no deficits, Ambulation: walks with assist only, uses walker, Speech: normal for age. states that this type of confusion has occurred in the past with UTI's. States that he recently finished a course of antibiotics for UTI.. Historical: - Allergies: 23:00 Codeine; lp1 23:00 Fentanyl; lp1 23:00 Xanax; lp1 - Home Meds: 05/05 00:48 digoxin 125 mcg (0.125 mg) Oral tab 1 tab once daily [Active]; ferrous sulfate 325 mg lp1 (65 mg iron) Oral tab daily [Active]; losartan 100 mg oral tab once daily [Active]; Protonix 40 mg Oral TbEC 1 tab 2 times per day [Active]; spironolactone 25 mg Oral tab 0.5 tab once daily [Active]; tamsulosin 0.4 mg Oral cp24 1 cap once daily [Active]; Warfarin Oral [Active]; Multiple Vitamins Oral tab daily [Active]; Lantus 100 unit/mL Sub-Q soln 18 unit daily [Active]; Victoza 2-Tee subcutaneous once daily [Active]; Insulin: Novolin R Sub-Q [Active]; - PMHx: 05/04 23:00 CAD; CHF; Diabetes - IDDM; Hyperlipidemia; Hypertension; lp1 - PSHx: 23:00 LVAD; lp1 - Immunization history:: Adult Immunizations up to date. - Social history:: Smoking status: Patient denies any tobacco usage or history of. ROS: 21:40 Constitutional: Negative for fever, chills, and weight loss, Eyes: Negative for injury, mh7 pain, redness, and discharge, ENT: Negative for injury, pain, and discharge, Neck: Negative for injury, pain, and swelling, Cardiovascular: Negative for chest pain, palpitations, and edema, Respiratory: Negative for shortness of breath, cough, wheezing, and pleuritic chest pain, Abdomen/GI: Negative for abdominal pain, nausea, vomiting, diarrhea, and constipation, : Negative for injury, bleeding, discharge, and swelling, MS/Extremity: Negative for injury and deformity, Skin: Negative for injury, rash, and discoloration, Neuro: Negative for headache, weakness, numbness, tingling, and seizure, Psych: Negative for depression, anxiety, suicide ideation, homicidal ideation, and hallucinations, Allergy/Immunology: Negative for hives, rash, and allergies, Endocrine: Negative for neck swelling, polydipsia, polyuria, polyphagia, and marked weight changes, Hematologic/Lymphatic: Negative for swollen nodes, abnormal bleeding, and unusual bruising. Exam: 21:40 Constitutional: This is a well developed, well nourished patient who is awake, alert, mh7 and in no acute distress. Head/Face: Normocephalic, atraumatic. Eyes: Pupils equal round and reactive to light, extra-ocular motions intact. Lids and lashes normal. Conjunctiva and sclera are non-icteric and not injected. Cornea within normal limits. Periorbital areas with no swelling, redness, or edema. Neck: Trachea midline, no thyromegaly or masses palpated, and no cervical lymphadenopathy. Supple, full range of motion without nuchal rigidity, or vertebral point tenderness. No Meningismus. Chest/axilla: Normal chest wall appearance and motion. Nontender with no deformity. No lesions are appreciated. Cardiovascular: Regular rate and rhythm with a normal S1 and S2. No gallops, murmurs, or rubs. Normal PMI, no JVD. No pulse deficits. Respiratory: Lungs have equal breath sounds bilaterally, clear to auscultation and percussion. No rales, rhonchi or wheezes noted. No increased work of breathing, no retractions or nasal flaring. Abdomen/GI: Soft, non-tender, with normal bowel sounds. No distension or tympany. No guarding or rebound. No evidence of tenderness throughout. Back: No spinal tenderness. No costovertebral tenderness. Full range of motion. Skin: Warm, dry with normal turgor. Normal color with no rashes, no lesions, and no evidence of cellulitis. MS/ Extremity: Pulses equal, no cyanosis. Neurovascular intact. Full, normal range of motion. Vital Signs: 21:24 BP 117 / 83; Pulse 66; Resp 20; Temp 98.2(O); Pulse Ox 96% on R/A; Weight 66.68 kg (R); lp1 Height 5 ft. 7 in. (170.18 cm); Pain 7/10; 22:30 BP 129 / 73; Pulse 64; Resp 17; Pulse Ox 98% on R/A; lp1 23:30 BP 123 / 76; Pulse 68; Resp 14; Pulse Ox 97% on R/A; lp1 05/05 00:30 BP 142 / 83; Pulse 80; Resp 21; Pulse Ox 96% on R/A; lp1 00:53 BP 110 / 96; Pulse 67; Resp 16; Pulse Ox 97% on R/A; lp1 02:00 BP 136 / 88; Pulse 63; Resp 20; Pulse Ox 96% on R/A; lp1 05/04 21:24 Body Mass Index 23.02 (66.68 kg, 170.18 cm) lp1 NIH Stroke Scale Scores: 05/04 21:40 NIHSS Score: 1 lp1 MDM: 05/05 02:09 Differential Diagnosis: CVA, electrolyte abnormality, alcohol intoxication, mh7 hypoglycemia, intracranial bleed, seizure, sepsis, TIA, UTI, volume depletion. Data reviewed: vital signs, nurses notes, old medical records, lab test result(s), cardiac enzymes, CBC, electrolytes, urinalysis, EKG, radiologic studies, CT scan, plain films. Data interpreted: Pulse oximetry: on room air is 97 %. Interpretation: normal. Counseling: I had a detailed discussion with the patient and/or guardian regarding: the historical points, exam findings, and any diagnostic results supporting the discharge/admit diagnosis, lab results, radiology results, to return to the emergency department if symptoms worsen or persist or if there are any questions or concerns that arise at home. Response to treatment: the patient's symptoms have resolved after treatment, the patient's blood pressure is in an acceptable range, mental status has returned to baseline, the patient no longer shows bradycardia, the patient is not short of breath, the patient is not tachycardic, the patient's pain is gone, the patient's temperature has normalized, the patient is now symptom free, patient is well hydrated. Refusal of service: The patient/guardian displays adequate decision making capability and despite a detailed discussion of alternatives, benefits, risks, and consequences refuses: Admission to the hospital for further work-up and treatment, Medications. ED course: Feels better, NAD, VSS, no focal neurological deficits. Awake, alert and oriented x3, tolerating PO intake. Discussed all test results and findings with the patient and his and recommended admission or transfer for further evaluation. They declined admission or transfer and request to be discharged from the ED. They feel they can manage his medical issues at home and will call his doctors in the morning for follow up. They know they can return if any urgent concerns.. 02:17 Patient medically screened. [facility] 05/04 21:43 Order name: Glucose, Ancillary Testing; Complete Time: 21:48 [facility] 05/04 21:50 Order name: Basic Metabolic Panel; Complete Time: : [facility] 05/04 21:50 Order name: CBC with Diff; Complete Time: 00:38 [facility] 05/04 21:50 Order name: LFT's; Complete Time: : [facility] 05/04 21:50 Order name: Magnesium; Complete Time: : [facility] 05/04 21:50 Order name: NT PRO-BNP; Complete Time: : [facility] 05/04 21:50 Order name: PT-INR; Complete Time: 00:38 [facility] 05/04 21:50 Order name: Troponin HS; Complete Time: 01: [facility] 05/04 21:50 Order name: Urine Microscopic Only; Complete Time: 23:33 [facility] 05/04 21:50 Order name: Urine Culture [facility] 05/04 22:12 Order name: COVID-19 SARS RT PCR (Document "Date of Onset" if Symptomatic); Complete [facility] Time: 00:04 05/04 22:12 Order name: Influenza Screen (a \\T\\ B); Complete Time: 00:04 [facility] 05/04 22:12 Order name: Lactate; Complete Time: 23:33 [facility] 05/04 22:12 Order name: Blood Culture Adult (2) [facility] 05/04 21:50 Order name: XRAY Chest (1 view); Complete Time: 23:33 [facility] 05/04 21:50 Order name: EKG; Complete Time: 21:51 [facility] 05/04 21:50 Order name: Cardiac monitoring; Complete Time: 21:53 [facility] 05/04 21:50 Order name: EKG - Nurse/Tech; Complete Time: 22:35 [facility] 05/04 21:50 Order name: IV Saline Lock; Complete Time: 21:53 [facility] 05/04 21:50 Order name: Labs collected and sent; Complete Time: 21:53 [facility] 05/04 21:50 Order name: O2 Per Protocol; Complete Time: 21:53 [facility] 05/04 21:50 Order name: O2 Sat Monitoring; Complete Time: 21:54 [facility] 05/04 21:50 Order name: Urine Dipstick-Ancillary (obtain specimen); Complete Time: 22:35 [facility] 05/04 21:50 Order name: CT Head Brain wo Cont; Complete Time: 22:08 [facility] 05/04 22:34 Order name: Urine Dipstick-Ancillary; Complete Time: 23:33 EDMS 05/05 00:43 Order name: Glucose, Ancillary Testing; Complete Time: 01:02 EDMS Administered Medications: No medications were administered Point of Care Testing: Blood Glucose: 05/04 21:31 Blood Glucose: 254 mg/dL; lp1 Ranges: Critical Glucose Levels:Adult <50 mg/dl or >400 mg/dl <40 mg/dl or >180 mg/dl Disposition Summary: 05/05/22 02:17 Discharge Ordered Location: Home [facility] Problem: an acute exacerbation [facility] Symptoms: have improved [facility] Condition: Stable [facility] Diagnosis - Confusion, resolved [facility] - Chronic combined systolic (congestive) and diastolic (congestive) heart failure [facility] Followup: [facility] - With: Private Physician - When: 1 - 2 days - Reason: Worsening of condition, Recheck today's complaints, Continuance of care, Re-evaluation by your physician Discharge Instructions: - Discharge Summary Sheet mh7 - Confusion mh7 - Heart Failure, Self Care, [id number] mh7 - Supporting Someone With Heart Failure mh7 - Heart Failure Exacerbation [facility] Forms: - Medication Reconciliation Form 7 - Thank You Letter mh7 - Antibiotic Education mh7 - Prescription Opioid Use mh7 NIH Stroke Scale - NIH Stroke Score Date: 05/04/2022 Time: 21:40 Total Score = 1 1a. Level of Consciousness (LOC) - 0(Alert) 1b. Level of Consciousness (LOC) (Month \\T\\ Age) - 0(Both) 1c. LOC Commands (Open \\T\\ Closes Eyes/Rural Carrier) - 0(Both) 2. Best Gaze (Lateral Gaze Paresis) - 0(Normal) 3. Visual Field Loss - 0(No visual loss) 4. Facial Palsy - 0(Normal) 5a. Left Arm: Motor (10-second hold) - 0(No drift) 5b. Right Arm: Motor (10-second hold) - 0(No drift) 6a. Left Leg: Motor (5-second hold - always test supine) - 0(No drift) 6b. Right Leg: Motor (5-second hold - always test supine) - 0(No drift) 7. Limb Ataxia (finger/nose \\T\\ heel/de jesus - test with eyes open) - 0(Absent) 8. Sensory Loss (pinprick arms/legs/face) - 0(Normal) 9. Best Language: Aphasia (description/naming/reading) - 1(Mild to moderate aphasia) 10. Dysarthria (speech clarity - read or repeat words) - 0(Normal) 11. Extinction and Inattention (visual/tactile/auditory/spatial/personal) - 0(No abnormality) Initials: lp1 Signatures: Dispatcher [employer] Holli Payne RN RN lp1 Roman Peres, TRAUMA DOCTOR-C TRAUMA DOCTOR-Cla1 Hugo Gardner MD MD [facility]
--- NOTE | 2022-05-05 02:18 | ER ---
Nurse's Notes [facility] Name: Rod Shrestha Age: 71 yrs Sex: Male : 1950 Arrival Date: 05/04/2022 Time: 21:27 Bed 14 Private MD: Diagnosis: Confusion, resolved;Chronic combined systolic (congestive) and diastolic (congestive) heart failure Presentation: 05/04 21:24 Acuity: BRETT 2 lp1 21:24 Risk Assessment: Do you want to hurt yourself or someone else? Patient reports no lp1 desire to harm self or others. Onset of symptoms was May 04, 2022 at 19:30. Care prior to arrival: IV initiated. 18 GA, in the right forearm, Glucose check: 288. 21:24 Chief complaint: EMS states: Called by patient's who reported patient appeared lp1 confused, beginning at 1930 tonight; Hx of CVA. Coronavirus screen: At this time, the client does not indicate any symptoms associated with coronavirus-19. Ebola Screen: No symptoms or risks identified at this time. Initial Sepsis Screen: Does the patient meet any 2 criteria? No. Patient's initial sepsis screen is negative. Does the patient have a suspected source of infection? No. Patient's initial sepsis screen is negative. 21:24 Method Of Arrival: EMS: [facility] Historical: - Allergies: 23:00 Codeine; lp1 23:00 Fentanyl; lp1 23:00 Xanax; lp1 - Home Meds: 05/05 00:48 digoxin 125 mcg (0.125 mg) Oral tab 1 tab once daily [Active]; ferrous sulfate 325 mg lp1 (65 mg iron) Oral tab daily [Active]; losartan 100 mg oral tab once daily [Active]; Protonix 40 mg Oral TbEC 1 tab 2 times per day [Active]; spironolactone 25 mg Oral tab 0.5 tab once daily [Active]; tamsulosin 0.4 mg Oral cp24 1 cap once daily [Active]; Warfarin Oral [Active]; Multiple Vitamins Oral tab daily [Active]; Lantus 100 unit/mL Sub-Q soln 18 unit daily [Active]; Victoza 2-Tee subcutaneous once daily [Active]; Insulin: Novolin R Sub-Q [Active]; - PMHx: 05/04 23:00 CAD; CHF; Diabetes - IDDM; Hyperlipidemia; Hypertension; lp1 - PSHx: 23:00 LVAD; lp1 - Immunization history:: Adult Immunizations up to date. - Social history:: Smoking status: Patient denies any tobacco usage or history of. Screenin/08 00:47 Abuse screen: Denies threats or abuse. Denies injuries from another. Nutritional lp1 screening: No deficits noted. Tuberculosis screening: No symptoms or risk factors identified. Fall Risk Total Carroll Fall Scale indicates High Risk Score (45 or more points). Fall prevention measures have been instituted. Side Rails Up X 2 Family Present and informed to notify staff if the need to leave the bedside As available patient and family educated on Fall Prevention Program and Strategies. Assessment: 05/04 21:30 Reassessment: Patient to CT. lp1 22:00 General: Appears in no apparent distress. Behavior is calm, cooperative. Pain: lp1 Complains of pain in back, Hx of chronic back pain from Scoliosis per Pain currently is 7 out of 10 on a pain scale. Quality of pain is described as aching, Alleviated by repositioning. 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 Full function Speech is normal, Facial symmetry appears normal, Pupils are PERRLA, Intact. Cardiovascular: Patient's skin is warm and dry. LVAD connected. Respiratory: Airway is patent Respiratory effort is even, unlabored. GI: No signs and/or symptoms were reported involving the gastrointestinal system. : Farooq in place to gravity drainage. EENT: No signs and/or symptoms were reported regarding the EENT system. Derm: Skin is intact, is thin, Skin is dry, Skin is normal. Musculoskeletal: Circulation, motion, and sensation intact. 05/05 00:00 Reassessment: Patient appears in no apparent distress at this time. Patient laying on lp1 side for comfort; Aware of waiting for results, at bedside. 03:00 Reassessment: Patient is alert, oriented x 3, equal unlabored respirations, skin lp1 warm/dry/pink. Assisted patient into wheelchair for discharge; Patient's demonstrates understanding on discharge instructions for follow-up with PCP for any further concerns. Vital Signs: 05/04 21:24 BP 117 / 83; Pulse 66; Resp 20; Temp 98.2(O); Pulse Ox 96% on R/A; Weight 66.68 kg (R); lp1 Height 5 ft. 7 in. (170.18 cm); Pain 7/10; 22:30 BP 129 / 73; Pulse 64; Resp 17; Pulse Ox 98% on R/A; lp1 23:30 BP 123 / 76; Pulse 68; Resp 14; Pulse Ox 97% on R/A; lp1 05/05 00:30 BP 142 / 83; Pulse 80; Resp 21; Pulse Ox 96% on R/A; lp1 00:53 BP 110 / 96; Pulse 67; Resp 16; Pulse Ox 97% on R/A; lp1 02:00 BP 136 / 88; Pulse 63; Resp 20; Pulse Ox 96% on R/A; lp1 05/04 21:24 Body Mass Index 23.02 (66.68 kg, 170.18 cm) lp1 NIH Stroke Scale Scores: 05/04 21:40 NIHSS Score: 1 lp1 ED Course: 21:27 Patient arrived in ED. mw2 21:30 Arm band placed on left wrist. lp1 21:32 Hugo Gardner MD is Attending Physician. mh7 21:40 Patient has correct armband on for positive identification. Placed in gown. Bed in low lp1 position. Side rails up X2. Client placed on continuous cardiac and pulse oximetry monitoring. NIBP monitoring applied. 21:45 Maintain EMS IV. Dressing intact. Good blood return noted. Site clean \\T\\ dry. Gauge \\T\\ lp 1 site: 18g to R FA. 21:45 Initial lab(s) drawn, by nh, sent to lab. lp1 21:51 Holli Dominguez, RN is Primary Nurse. lp1 21:55 Triage completed. lp1 21:59 CT Head Brain wo Cont In Process Unspecified. EDMS 22:12 EKG done, by ED staff, reviewed by Hugo Gardner MD. lp1 22:21 XRAY Chest (1 view) In Process Unspecified. EDMS 22:28 Urine collected: Farooq catheter specimen, clear. lp1 23:04 Blood Culture Adult (2) Sent. zm 23:05 Lactate Sent. zm 23:05 Influenza Screen (a \\T\\ B) Sent. zm 23:05 COVID-19 SARS RT PCR (Document "Date of Onset" if Symptomatic) Sent. zm 05/05 00:47 No provider procedures requiring assistance completed. lp1 03:04 IV discontinued, No redness/swelling at site. Pressure dressing applied. lp1 Administered Medications: No medications were administered Medication: 05/04 21:55 VIS not applicable for this client. lp1 Point of Care Testing: Blood Glucose: 21:31 Blood Glucose: 254 mg/dL; lp1 Ranges: Output: 05/05 03:05 Urine: 900ml (Farooq); Total: 900ml. lp1 Outcome: 02:17 Discharge ordered by . 7 03:04 Discharged to home via wheelchair, with significant other. lp1 03:04 Condition: good 03:04 Discharge instructions given to patient, Instructed on discharge instructions, follow up and referral plans. Demonstrated understanding of instructions, follow-up care. 03:07 Patient left the ED. lp1 NIH Stroke Scale - NIH Stroke Score Date: 05/04/2022 Time: 21:40 Total Score = 1 1a. Level of Consciousness (LOC) - 0(Alert) 1b. Level of Consciousness (LOC) (Month \\T\\ Age) - 0(Both) 1c. LOC Commands (Open \\T\\ Closes Eyes/Roadability Machine Operator) - 0(Both) 2. Best Gaze (Lateral Gaze Paresis) - 0(Normal) 3. Visual Field Loss - 0(No visual loss) 4. Facial Palsy - 0(Normal) 5a. Left Arm: Motor (10-second hold) - 0(No drift) 5b. Right Arm: Motor (10-second hold) - 0(No drift) 6a. Left Leg: Motor (5-second hold - always test supine) - 0(No drift) 6b. Right Leg: Motor (5-second hold - always test supine) - 0(No drift) 7. Limb Ataxia (finger/nose \\T\\ heel/de jesus - test with eyes open) - 0(Absent) 8. Sensory Loss (pinprick arms/legs/face) - 0(Normal) 9. Best Language: Aphasia (description/naming/reading) - 1(Mild to moderate aphasia) 10. Dysarthria (speech clarity - read or repeat words) - 0(Normal) 11. Extinction and Inattention (visual/tactile/auditory/spatial/personal) - 0(No abnormality) Initials: lp1 Signatures: Dispatcher [employer] Holli Payne RN RN lp1 Romeo Puckett 2 Hugo Gardner MD MD 7 Loli Mao Corrections: (The following items were deleted from the chart) 00:47 05/04 21:30 BP 117 / 83; Pulse 66bpm; Resp 20bpm; Pulse Ox 96% RA; lp1 lp1 05/05 01:25 05/04 19:30 Reassessment: Patient to CT lp1 lp1
[2022-05-05 03:13] VITALS: TEMP 98.2
[2022-05-05 03:21] VITALS: BP 136/88; O2SAT 96
--- NOTE | 2022-05-05 07:53 | EKG ---
Test Date: 2022-05-04 Test Time: 22:12:23 Floodplain Manager: INDIRA MEASUREMENT RESULTS: Intervals: Rate: 68 [place]: QRSD: 130 QT: 440 QTc: 467 [place]: P: [place]: QRS: -55 T: 118 INTERPRETIVE STATEMENTS: Wide QRS rhythm with premature supraventricular complexes and with frequent premature ventricular complexes Left axis deviation Nonspecific intraventricular block Inferior infarct, age undetermined Anterolateral infarct, age undetermined Abnormal ECG Compared to ECG 09/22/2021 07:52:10 Atrial premature complex(es) now present Ventricular escape complex(es) no longer present Left ventricular hypertrophy no longer present Early repolarization no longer present Myocardial infarct finding still present Electronically Signed On 05-05-22 07:52:26 CDT by Markos Villa
== END 2022-05-05 03:07 | disposition home or self-care (01) ==
LOC: ER 21:15
DX: I50.42 Chronic combined systolic (congestive) and diastolic (congestive) heart failure (principal); E11.9 Type 2 diabetes mellitus without complications; I10 Essential (primary) hypertension; I25.10 Atherosclerotic heart disease of native coronary artery without angina pectoris; Z20.822 Contact with and (suspected) exposure to COVID-19; Z79.01 Long term (current) use of anticoagulants; Z79.4 Long term (current) use of insulin; Z88.5 Allergy status to narcotic agent
CPT/HCPCS: 93005; 87040 ×2; 87088; 85025; 87086; 80048; 36415; 83735; 85610; 82947 ×2; 80076; 83605; 84484; 83880; 87804 ×2; 70450; 71045; 99284; U0003; 81003; 81015

== ENCOUNTER 2022-06-06 22:12 | Emergency (ER) | payer OTHER ==
[2022-06-06 23:34] LABS: Absolute Lymphocytes (CBC) 0.4 K/uL (0.7-4.9); Hematocrit 31.6 % (39.6-49.0); Lymphocytes % 3.3 % (15.3-44.8); MCV 83.4 fL (80-100); MPV 6.9 fL (7.6-11.3); RBC Red Blood Cell Count 3.79 M/uL (4.33-5.43)
[2022-06-06 23:37] LABS: Protime INR 1.6
[2022-06-06 23:50] LABS: Albumin 3.8 g/dL (3.4-5.0); Bilirubin Direct 0.2 mg/dL (0-0.2); Bilirubin Total 0.5 mg/dL (0.2-1.0); Magnesium 1.8 mg/dL (1.8-2.4); Potassium 4.1 mmol/L (3.5-5.1); Protein, Total 7.2 g/dL (6.4-8.2); Troponin High Sensitivity 24.2 pg/mL (<58.9)
[2022-06-06] MEDS ORDERED: CEFTRIAXONE 1000 MG/VIAL ONE (23:59)
[2022-06-06] MEDS ORDERED: NA CHLORIDE 0.9% 1,000 ML ONE (23:59)
[2022-06-06] MEDS ORDERED: ACETAMINOPHEN 325 MG TABLET ONE (23:59)
[2022-06-07 00:08] LABS: Urine Blood Trace-intact (Negative); Urine Glucose 1+ (Negative); Urine Protein 1+ (Negative); Urine Specific Gravity 1.025 (1.005-1.030); Urine pH 5.5 (5.0-7.0)
[2022-06-07 02:17] LABS: Urine Bacteria <20 /HPF (NONE SEEN); Urine RBC NONE SEEN /HPF (NONE SEEN)
--- NOTE | 2022-06-07 02:28 | EDPHYS ---
Physician Documentation [facility] Name: Rod Shrestha Age: 71 yrs Sex: Male : 1950 Arrival Date: 06/06/2022 Time: 22:16 Bed 18 Private MD: ED Physician Cholo Humphreys HPI: 06/07 02:15 This 71 yrs old Male presents to ER via Wheelchair with complaints of Altered kimberly Mental Status. Historical: - Allergies: 06/06 22:50 Codeine; lg3 22:50 Fentanyl; lg3 22:50 Xanax; lg3 - PMHx: 22:50 CAD; CHF; Diabetes - IDDM; Hyperlipidemia; Hypertension; lg3 - PSHx: 22:50 LVAD; lg3 - Immunization history:: Adult Immunizations up to date, Client reports receiving the 2nd dose of the Covid vaccine. - Social history:: Smoking status: Patient denies any tobacco usage or history of. Patient/guardian denies using alcohol. ROS: 06/07 02:21 Eyes: Negative for injury, pain, redness, and discharge, ENT: Negative for injury, kimberly pain, and discharge, Neck: Negative for injury, pain, and swelling, Cardiovascular: Negative for chest pain, palpitations, and edema, Respiratory: Negative for shortness of breath, cough, wheezing, and pleuritic chest pain, Abdomen/GI: Negative for abdominal pain, nausea, vomiting, diarrhea, and constipation, Back: Negative for injury and pain, : Negative for injury, bleeding, discharge, and swelling, MS/Extremity: Negative for injury and deformity, Skin: Negative for injury, rash, and discoloration, Psych: Negative for depression, anxiety, suicide ideation, homicidal ideation, and hallucinations, Allergy/Immunology: Negative for hives, rash, and allergies, Endocrine: Negative for neck swelling, polydipsia, polyuria, polyphagia, and marked weight changes, Hematologic/Lymphatic: Negative for swollen nodes, abnormal bleeding, and unusual bruising. Constitutional: Positive for fatigue, fever. Cardiovascular: Neuro: Positive for weakness. Exam: 02:21 Head/Face: Normocephalic, atraumatic. Eyes: Pupils equal round and reactive to light, kimberly extra-ocular motions intact. Lids and lashes normal. Conjunctiva and sclera are non-icteric and not injected. Cornea within normal limits. Periorbital areas with no swelling, redness, or edema. ENT: Nares patent. No nasal discharge, no septal abnormalities noted. Tympanic membranes are normal and external auditory canals are clear. Oropharynx with no redness, swelling, or masses, exudates, or evidence of obstruction, uvula midline. Mucous membranes moist. Neck: Trachea midline, no thyromegaly or masses palpated, and no cervical lymphadenopathy. Supple, full range of motion without nuchal rigidity, or vertebral point tenderness. No Meningismus. Chest/axilla: Normal chest wall appearance and motion. Nontender with no deformity. No lesions are appreciated. Cardiovascular: Regular rate and rhythm with a normal S1 and S2. No gallops, murmurs, or rubs. Normal PMI, no JVD. No pulse deficits. Respiratory: Lungs have equal breath sounds bilaterally, clear to auscultation and percussion. No rales, rhonchi or wheezes noted. No increased work of breathing, no retractions or nasal flaring. Abdomen/GI: Soft, non-tender, with normal bowel sounds. No distension or tympany. No guarding or rebound. No evidence of tenderness throughout. Back: No spinal tenderness. No costovertebral tenderness. Full range of motion. Male : Normal genitalia with no discharge or lesions. Skin: Warm, dry with normal turgor. Normal color with no rashes, no lesions, and no evidence of cellulitis. MS/ Extremity: Pulses equal, no cyanosis. Neurovascular intact. Full, normal range of motion. Psych: Awake, alert, with orientation to person, place and time. Behavior, mood, and affect are within normal limits. 02:21 Constitutional: The patient appears febrile, uncomfortable. Vital Signs: 06/06 22:47 BP 119 / 75; Pulse 75; Resp 32 S; Temp 102.4(O); Pulse Ox 97% on R/A; Weight 68.04 kg lg3 (R); Height 5 ft. 8 in. (172.72 cm) (R); 06/07 00:10 BP 130 / 75; Pulse 96; Resp 20 S; Pulse Ox 96% on R/A; lg3 01:32 BP 144 / 82; Pulse 86; Resp 20 S; Pulse Ox 95% on R/A; lg3 02:02 Temp 99.4; la1 06:13 BP 146 / 75; Pulse 62; Resp 18 S; Pulse Ox 96% on R/A; [facility] 06/06 22:47 Body Mass Index 22.81 (68.04 kg, 172.72 cm) 3 [place] Coma Score: 02:23 Eye Response: spontaneous(4). Verbal Response: oriented(5). Motor Response: obeys [facility] commands(6). Total: 15. MDM: 06/06 22:29 Patient medically screened. 23:23 Patient medically screened. [facility] 06/07 02:23 Differential diagnosis: viral Infection, bacterial infection, URI, bronchitis, kimberly pneumonia UTI, gastroenteritis. Differential Diagnosis altered mental status, sepsis, flu. Differential Diagnosis: CVA, electrolyte abnormality, hypoglycemia, seizure, sepsis, TIA, UTI, volume depletion. Data reviewed: vital signs, nurses notes, lab test result(s), EKG, radiologic studies, plain films. Data interpreted: monitor and storage bin tender: rate is 86 beats/min, rhythm is regular, Pulse oximetry: on room air is 95 %. Test interpretation: by ED physician or midlevel provider: ECG, plain radiologic studies. Counseling: I had a detailed discussion with the patient and/or guardian regarding: the historical points, exam findings, and any diagnostic results supporting the discharge/admit diagnosis, lab results, radiology results, the need for outpatient follow up. 06/06 22:57 Order name: Blood Culture Adult (2) [facility] 06/06 22:57 Order name: CBC with Diff; Complete Time: 00:27 [facility] 06/06 22:57 Order name: CMP; Complete Time: 00:27 [facility] 06/06 22:57 Order name: Lactate; Complete Time: 00:27 [facility] 06/06 22:57 Order name: Protime (+inr); Complete Time: 00:27 [facility] 06/06 22:57 Order name: Ptt, Activated; Complete Time: 00:27 [facility] 06/06 23:11 Order name: Glucose, Ancillary Testing; Complete Time: 00:27 [facility] 06/06 23:16 Order name: Flu; Complete Time: 00:55 [facility] 06/06 22:57 Order name: Accucheck; Complete Time: 22:59 [facility] 06/06 23:16 Order name: XRAY Chest (1 view) [facility] 06/06 23:16 Order name: Urine Culture [facility] 06/06 23:16 Order name: CT Stone Protocol [facility] 06/06 23:18 Order name: Influenza Screen (A ; Complete Time: 00:27 [facility] 06/06 23:25 Order name: Bilirubin Direct; Complete Time: 00:27 [facility] 06/06 23:25 Order name: Troponin High Sensitivity; Complete Time: 00:27 [facility] 06/06 23:25 Order name: NT PRO-BNP; Complete Time: 00:27 [facility] 06/06 23:25 Order name: Magnesium; Complete Time: 00:27 [facility] 06/07 00:09 Order name: Urine Dipstick-Ancillary; Complete Time: 00:27 [facility] 06/07 02:06 Order name: Urine Microscopic Only; Complete Time: 02:19 [facility] 06/06 22:57 Order name: Cardiac monitoring; Complete Time: 22:59 [facility] 06/06 22:57 Order name: EKG - Nurse/Tech; Complete Time: 00:16 [facility] 06/06 22:57 Order name: IV Saline Lock - Large Bore; Complete Time: 22:59 [facility] 06/06 22:57 Order name: Labs collected and sent; Complete Time: 23:05 [facility] 06/06 22:57 Order name: O2 Per Protocol; Complete Time: 23:05 [facility] 06/06 22:57 Order name: O2 Sat Monitoring; Complete Time: 23:05 [facility] 06/06 23:16 Order name: IV Saline Lock; Complete Time: 23:22 [facility] 06/06 23:16 Order name: Urine Dipstick-Ancillary (obtain specimen); Complete Time: 00:09 [facility] Administered Medications: 06/06 23:52 Drug: Rocephin (cefTRIAXone) 1 grams Route: IV; Rate: per protocol; Site: right forearm;[facility] 06/07 06:14 Follow up: Response: No adverse reaction; IV Status: Completed infusion; IV Intake: 75yshg0 06/06 23:53 Drug: Tylenol 650 mg Route: PO; [facility] 06/07 00:16 Follow up: Response: No adverse reaction [facility] 06/06 23:53 Drug: NS 0.9% 1000 ml Route: IV; Rate: 1 bolus; Site: right forearm; [facility] 06/07 06:14 Follow up: IV Status: Completed infusion; IV Intake: 1000ml lg3 02:38 Drug: vancoMYCIN 1 grams Route: IVPB; Infused Over: 2 hrs; Site: right forearm; lg3 05:11 Follow up: Response: No adverse reaction; IV Status: Completed infusion; IV Intake: lg3 250ml Disposition Summary: 06/07/22 02:27 Transfer Ordered Reason: Higher level of care kimberly Condition: Stable kimberly Problem: new kimberly Symptoms: have improved kimberly Transfer Location: [facility](06/07/22 03:36) kimberly Accepting Physician: to [facility](06/07/22 07:10) ph Diagnosis - Unspecified combined systolic (congestive) and diastolic (congestive) heart failure kimberly - LVAD Patient - Fever, unspecified kimberly - Altered mental status, unspecified kimberly - Weakness kimberly Forms: - Medication Reconciliation Form kimberly - SBAR form kimberly Signatures: Dispatcher [employer] EDMS Liv White, LOAD HAUL DUMP OPERATOR-C LOAD HAUL DUMP OPERATOR-Ckb Cholo Humphreys MD MD cha Attema, Lee LOAD HAUL DUMP OPERATOR-C LOAD HAUL DUMP OPERATOR-ClaKenyatta Nova RN RN Sobia Marsh RN RN lg3 Corrections: (The following items were deleted from the chart) 06/06 23:24 23:17 BASIC METABOLIC PANEL+C.LAB.BRZ ordered. EDMS EDMS 23:24 23:17 HEPATIC FUNCTION+C.LAB.BRZ ordered. EDMS EDMS 23:24 23:17 MAGNESIUM+C.LAB.BRZ ordered. EDMS EDMS 23:24 23:17 PROBNP+C.LAB.BRZ ordered. EDMS EDMS 23:24 23:17 Troponin High Sensitivity+C.LAB.BRZ ordered. EDMS EDMS 06/07 02:28 02:27 to [facility] kimberly 03:36 02:27 [facility] kimberly 03:36 02:28 to [facility] kimberly 07:10 03:36 to [facility] ph
--- NOTE | 2022-06-07 02:28 | ER ---
Nurse's Notes [facility] Name: Rod Shrestha Age: 71 yrs Sex: Male : 1950 Arrival Date: 06/06/2022 Time: 22:16 Bed 18 Private MD: Diagnosis: Unspecified combined systolic (congestive) and diastolic (congestive) heart failure-LVAD Patient;Fever, unspecified;Altered mental status, unspecified;Weakness Presentation: 06/06 22:47 Chief complaint: Patient states: weakness and dizziness starting this morning. lg3 Coronavirus screen: Client denies travel out of the [place] in the last 14 days. At this time, the client does not indicate any symptoms associated with coronavirus-19. Ebola Screen: No symptoms or risks identified at this time. Initial Sepsis Screen: Does the patient meet any 2 criteria? RR > 20 per min. Temp <36.0*C (96.8*F)) or > 38.3*C (100.9*F). Altered Mental Status. Yes Does the patient have a suspected source of infection? Yes: Catheter related infection (Farooq/dialysis/PICC/central line) Risk Assessment: Do you want to hurt yourself or someone else? Patient reports no desire to harm self or others. Onset of symptoms was June 06, 2022. 22:47 Method Of Arrival: Wheelchair lg3 22:47 Acuity: BRETT 3 lg3 Triage Assessment: 22:50 General: Appears in no apparent distress. comfortable, Behavior is calm, cooperative. lg3 Pain: Complains of pain in generalized. EENT: No deficits noted. No signs and/or symptoms were reported regarding the EENT system. Neuro: Level of Consciousness is awake, obeys commands, confused, Oriented to person, place, time, situation, Speech is normal, Reports dizziness, weakness. Cardiovascular: Denies chest pain, shortness of breath, Capillary refill < 3 seconds Clubbing of nail beds is absent JVD is absent Patient's skin is warm and dry. LVAD in place. Respiratory: No deficits noted. Airway is patent Trachea midline Respiratory effort is even, unlabored, Respiratory pattern is symmetrical, tachypnea Breath sounds are clear bilaterally. GI: Abdomen is flat, non-distended, Bowel sounds present X 4 quads. : Farooq in place. Derm: Skin is intact, is thin, Skin is dry, Skin temperature is warm. Musculoskeletal: Reports generalized weakness since this morning. Historical: - Allergies: 22:50 Codeine; lg3 22:50 Fentanyl; lg3 22:50 Xanax; lg3 - PMHx: 22:50 CAD; CHF; Diabetes - IDDM; Hyperlipidemia; Hypertension; lg3 - PSHx: 22:50 LVAD; lg3 - Immunization history:: Adult Immunizations up to date, Client reports receiving the 2nd dose of the Covid vaccine. - Social history:: Smoking status: Patient denies any tobacco usage or history of. Patient/guardian denies using alcohol. Screenin:55 Abuse screen: Denies threats or abuse. Denies injuries from another. Nutritional lg3 screening: No deficits noted. Tuberculosis screening: No symptoms or risk factors identified. Fall Risk IV access (20 points). Gait- Impaired (20 pts.). Mental Status- Overestimates/Forgets Limitations (15 pts.). Total Carroll Fall Scale indicates High Risk Score (45 or more points). Side Rails Up X 2 Frequent Obs/Assessments Occuring As available patient and family educated on Fall Prevention Program and Strategies. Assessment: 22:55 General: see triage assessment . lg3 06/07 00:09 Reassessment: Patient appears in no apparent distress at this time. No changes from lg3 previously documented assessment. Patient and/or family updated on plan of care and expected duration. Pain level reassessed. Patient is alert, oriented x 3, equal unlabored respirations, skin warm/dry/pink. 01:31 Reassessment: Patient appears in no apparent distress at this time. No changes from lg3 previously documented assessment. Patient and/or family updated on plan of care and expected duration. Pain level reassessed. Patient is alert, oriented x 3, equal unlabored respirations, skin warm/dry/pink. 04:18 General: report called to NAOMI Azevedo \\T\\ [facility]. lg3 06:13 Reassessment: Patient appears in no apparent distress at this time. No changes from lg3 previously documented assessment. Patient and/or family updated on plan of care and expected duration. Pain level reassessed. Patient is alert, oriented x 3, equal unlabored respirations, skin warm/dry/pink. pt quietly resting at this time. Vital Signs: 06/06 22:47 BP 119 / 75; Pulse 75; Resp 32 S; Temp 102.4(O); Pulse Ox 97% on R/A; Weight 68.04 kg lg3 (R); Height 5 ft. 8 in. (172.72 cm) (R); 06/07 00:10 BP 130 / 75; Pulse 96; Resp 20 S; Pulse Ox 96% on R/A; lg3 01:32 BP 144 / 82; Pulse 86; Resp 20 S; Pulse Ox 95% on R/A; lg3 02:02 Temp 99.4; la1 06:13 BP 146 / 75; Pulse 62; Resp 18 S; Pulse Ox 96% on R/A; lg3 06/06 22:47 Body Mass Index 22.81 (68.04 kg, 172.72 cm) lg3 [place] Coma Score: 02:23 Eye Response: spontaneous(4). Verbal Response: oriented(5). Motor Response: obeys kimberly commands(6). Total: 15. ED Course: 06/06 22:16 Patient arrived in ED. bp1 22:27 Sobia Marsh, RN is Primary Nurse. lg3 22:29 Liv White FNP-C is PHCP. kb 22:29 Cholo Humphreys MD is Attending Physician. kb 22:50 Triage completed. lg3 22:50 Arm band placed on right wrist. lg3 22:55 Patient has correct armband on for positive identification. Placed in gown. Bed in low lg3 position. Call light in reach. Side rails up X2. Client placed on continuous cardiac and pulse oximetry monitoring. NIBP monitoring applied. cost control supervisor on. Door closed. Noise minimized. 23:05 Blood Culture Adult (2) Sent. lg3 23:05 CBC with Diff Sent. lg3 23:05 CMP Sent. lg3 23:05 Lactate Sent. lg3 23:05 Protime (+inr) Sent. lg3 23:05 Ptt, Activated Sent. lg3 23:10 Inserted saline lock: 18 gauge in right forearm, using aseptic technique. Blood lg3 collected. 23:14 Cholo Humphreys MD is Attending Physician. kimberly 23:22 Influenza Screen (A Sent. lg3 23:30 XRAY Chest (1 view) In Process Unspecified. EDMS 23:30 Bilirubin Direct Sent. lg3 23:30 Troponin High Sensitivity Sent. lg3 23:30 NT PRO-BNP Sent. lg3 23:30 Magnesium Sent. lg3 06/07 00:09 Family accompanied patient. lg3 00:09 Urine Culture Sent. lg3 00:43 initiated a transfer with Helena from [facility]. mw2 00:54 [facility] denied due to capacity. mw2 00:55 paged the LVAD team with [facility] waiting for a call back. mw2 01:[address] Humphreys with Dr. Grace from the [facility] LVAD Team. mw2 01:17 CT Stone Protocol In Process Unspecified. EDMS 01:54 Re initiated a transfer with Helena from [facility]. She stated "we [facility] don't have any beds." I asked her if we could get hold of Administration she said " I'll call you back." Waiting for a call back. 01:57 initiated a transfer with Rivka from [facility]. mw2 02:09 [facility] denied due to capacity. mw2 02:12 initiated a transfer with Neelam from [facility]. mw2 02:[address] Humphreys with the Doctor from [facility] mw2 03:13 administrative approval given by Neelam Sullivan/ patient has been accepted to [address] to a Heart IMU bed/ Dr. Hanley accepted the patient in transfer/report to be called to [phone]. 03:29 administrative approval given by Helena Gusman/ patient has been accepted to [address] ER/ Dr. Salomon accepted the patient in transfer/report to be called to [phone]. 03:30 [facility] transfer canceled due to [facility] accepting. mw2 04:30 [facility] ETA 1 hour 30 minutes. mw2 06:14 No provider procedures requiring assistance completed. Patient transferred, IV remains lg3 in place. intact, No redness/swelling at site. 06:36 [facility] ETA past 0700. mw2 06:37 [facility] ETA 30 minutes. mw2 Administered Medications: 06/06 23:52 Drug: Rocephin (cefTRIAXone) 1 grams Route: IV; Rate: per protocol; Site: right forearm;lg3 07/11 06:14 Follow up: Response: No adverse reaction; IV Status: Completed infusion; IV Intake: [id number] 06/06 23:53 Drug: Tylenol 650 mg Route: PO; lg3 06/07 00:16 Follow up: Response: No adverse reaction lg3 06/06 23:53 Drug: NS 0.9% 1000 ml Route: IV; Rate: 1 bolus; Site: right forearm; lg3 06/07 06:14 Follow up: IV Status: Completed infusion; IV Intake: 1000ml lg3 02:38 Drug: vancoMYCIN 1 grams Route: IVPB; Infused Over: 2 hrs; Site: right forearm; lg3 05:11 Follow up: Response: No adverse reaction; IV Status: Completed infusion; IV Intake: lg3 250ml Medication: 06:15 VIS not applicable for this client. lg3 Intake: 05:11 IV: 250ml; Total: 250ml. lg3 06:14 IV: 1000ml; Total: 1250ml. lg3 06:14 IV: 10ml; Total: 1260ml. lg3 Outcome: 02:27 ER care complete, transfer ordered by MD. harris 06:15 Transferred by ground EMS to [facility], Transfer form completed. lg3 06:15 Condition: stable 06:15 Instructed on the need for transfer, Demonstrated understanding of instructions. 07:10 Patient left the ED. ph Signatures: Dispatcher [employer] EDLiv Saucedo, DIRECTOR OF COLLECTIONS AND ARCHIVES-C DIRECTOR OF COLLECTIONS AND ARCHIVES-CkCholo Short MD MD cha Hall, Patricia RN RN Romeo Puckett 2 Sobia Marsh RN RN [facility] Raysa Rubi Corrections: (The following items were deleted from the chart) 02:48 01:54 Re initiated a transfer with Helena from [facility] mw2 mw2
[2022-06-07] MEDS ORDERED: NA CHLORIDE 0.9% 250 ML ONE (02:36)
[2022-06-07] MEDS ORDERED: VANCOMYCIN 1 GM/VIAL ONE (02:36)
[2022-06-07 07:22] VITALS: TEMP 99.4
[2022-06-07 07:24] VITALS: BP 146/75; O2SAT 96
--- NOTE | 2022-06-07 16:04 | RAD REPORT ---
EXAM DESCRIPTION: CT Abdomen and Pelvis COMPARISON: None. CLINICAL HISTORY: [facility] MAIN flank TECHNIQUE: CT of the abdomen and pelvis was acquired without IV contrast material. Coronal and sag ittal reconstructions were obtained. Automated exposure control was utilized on this examination as a dose lowering technique. FINDINGS: Lung bases: There is consolidation of the left lower lobe. Cardiomegaly is present with LV AD in place. *Evaluation of solid organs is limited due to lack of IV contrast. Liver: Normal. Gallbladder and biliary: Cholelithiasis. Unremarkable biliary tree. Pancreas: Mild peripancreatic fat stranding is present. Spleen: Normal. Adrenal glands: Normal adrenal glands. Kidneys: Bilateral renal cysts are present. Stomach and Small Bowel: The stomach is normal. Small duodenal diverticula are noted. Urinary bladder: Decompressed bladder with Farooq catheter in place. Prostate/Male Urogenital: Enlarged measuring 6.6 cm mediolateral. Colon and Appendix: Mild colonic diverticulosis. No evidence of appendicitis. Retroperitoneum and lymph nodes: Normal. Vascular: Severe multivessel atherosclerosis. Peritoneal cavity: No ascites or free air. Musculoskeletal and soft tissues: Soft tissues are unremarkable. Lumbar spondylosis is present. No ag gressive bone lesions. No compression fracture. IMPRESSION: 1. Mild peripancreatic fat stranding is nonspecific for mild pancreatitis. 2. Left lower lobe aspiration or pneumonia. 3. Cardiomegaly with LVAD. 4. Cholelithiasis. 5. Prostatic hypertrophy. 6. Mild colonic diverticulosis. 7. Severe atherosclerosis. Electronically signed by: Keon Garcia MD 06/07/2022 4:31 AM CDT Due to temporary technical issues with the PACS/Fluency reporting system, reports are being signed by the in house radiologists without review as a courtesy to insure prompt reporting. The interpreting radiologist is fully responsible for the content of the report.
--- NOTE | 2022-06-07 16:25 | RAD REPORT ---
EXAM DESCRIPTION: Chest Single View 06/07/2022 12:41 AM CDT CLINICAL HISTORY: 71 years, Male, COUGH COMPARISON: None FINDINGS: Single view of the chest was obtained portable. No prior films are available for compariso n. The lung volume is slightly decreased. Elevation of the right hemidiaphragm. There is a dual-denise d pacemaker via left subclavian. Sternotomy wires and metallic ring along the aortic valve correspond ing to previous valvular replacement. There is a radiodense most likely external device lower chest/u pper abdomen. The heart is prominent. The thoracic aorta is mildly tortuous with intimal calcificatio n. Pulmonary vascular structures normal distribution. No significant pleural effusions. The rest of t he soft tissue and bony structures demonstrate to be unremarkable. IMPRESSION: Slight decreased lung volume. Elevation of the right hemidiaphragm. Status post aortic valve replacement. Mild cardiomegaly. Pacemaker in place. Electronically signed by: Juan Antonio Olivarez MD 06/07/2022 12:43 AM CDT Due to temporary technical issues with the PACS/Fluency reporting system, reports are being signed by the in house radiologists without review as a courtesy to insure prompt reporting. The interpreting radiologist is fully responsible for the content of the report.
== END 2022-06-07 07:10 | disposition short-term general hospital (02) ==
LOC: ER 22:12
DX: R41.82 Altered mental status, unspecified (principal); I50.40 Unspecified combined systolic (congestive) and diastolic (congestive) heart failure; R50.9 Fever, unspecified; R53.1 Weakness; Z95.811 Presence of heart assist device; I10 Essential (primary) hypertension; Z20.822 Contact with and (suspected) exposure to COVID-19; Z88.5 Allergy status to narcotic agent
CPT/HCPCS: 87040 ×2; 87088; 85025; 87086; 36415; 83735; 85610; 82947; 83605; 85730; 82248; 84484; 80053; 83880; 87804 ×2; 76377; 74176; 71045; U0003; J3370; J7050; J7030; 81003; 81015

== ENCOUNTER 2022-07-09 13:26 | Emergency (ER) | payer OTHER ==
[2022-07-09 15:03] LABS: Urine Blood 3+ (Negative); Urine Glucose Negative (Negative); Urine Protein 1+ (Negative); Urine Specific Gravity 1.015 (1.005-1.030); Urine pH 5.5 (5.0-7.0)
--- NOTE | 2022-07-09 15:17 | EDPHYS ---
Physician Documentation [facility] Name: Rod Shrestha Age: 72 yrs Sex: Male : 1950 Arrival Date: 07/09/2022 Time: 13:29 Bed 19 Private MD: ED Physician Miguel Soriano HPI: 07/09 14:06 This 72 yrs old Male presents to ER via Ambulatory with complaints of Problem With jr11 Urinary Catheter. 14:06 The patient presents with urinary symptoms, HEMATURIA X few hrs after accidentally jr11 pulling on it . 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 Modifying factors: The symptoms are alleviated by nothing, the symptoms are aggravated by nothing. Associated signs and symptoms: The patient has no apparent associated signs or symptoms. Severity of symptoms: At their worst the symptoms were moderate, in the emergency department the symptoms are unchanged. Denies any other concerns, LVAD no issues . Historical: - Allergies: 14:05 Codeine; ss 14:05 Fentanyl; ss 14:05 Xanax; ss - PMHx: 14:05 CAD; CHF; Diabetes - IDDM; Hyperlipidemia; Hypertension; ss - PSHx: 14:05 LVAD; ss - Immunization history:: Client reports receiving the 2nd dose of the Covid vaccine. - Social history:: Smoking status: Patient denies any tobacco usage or history of. ROS: 14:06 All other systems are negative. jr11 Exam: 14:06 Constitutional: This is a well developed, well nourished patient who is awake, alert, jr11 and in no acute distress. Head/Face: Normocephalic, atraumatic. Eyes: Extra-ocular motions intact. Lids and lashes normal. Conjunctiva and sclera are non-icteric and not injected. Cornea within normal limits. Periorbital areas with no swelling, redness, or edema. Neck: Trachea midline, no thyromegaly or masses palpated, and no cervical lymphadenopathy. Supple, full range of motion without nuchal rigidity, or vertebral point tenderness. No Meningismus. Chest/axilla: Normal chest wall appearance and motion. Nontender with no deformity. No lesions are appreciated. Cardiovascular: Regular rate and rhythm with a normal S1 and S2. No gallops, murmurs, or rubs. Normal PMI, no JVD. No pulse deficits. Respiratory: Lungs have equal breath sounds bilaterally, clear to auscultation and percussion. No rales, rhonchi or wheezes noted. No increased work of breathing, no retractions or nasal flaring. Abdomen/GI: LVAD c/d/i Male : FTG in place with gross hematuria MS/ Extremity: Pulses equal, no cyanosis. Neurovascular intact. Full, normal range of motion. Vital Signs: 14:01 BP 145 / 86; Pulse 62; Resp 16; Temp 98.0(TE); Pulse Ox 100% on R/A; Weight 72.12 kg; ss Height 5 ft. 7 in. (170.18 cm); Pain 8/10; 14:30 BP 131 / 98; Pulse 62; Resp 20 S; Pulse Ox 98% on R/A; jg9 14:01 Body Mass Index 24.90 (72.12 kg, 170.18 cm) ss MDM: 14:03 Patient medically screened. jr11 14:06 Differential diagnosis: hematuria. Data reviewed: vital signs, nurses notes. jr11 15:15 Other consultation: spoke to urologist rec changing catheter, no concern for jr11 infection. knows how to flush catheter and will return if occluded. . 08 13:56 Order name: UA MICROSCOPIC jr11 07/09 15:03 Order name: Urine Dipstick-Ancillary; Complete Time: 15:12 EDMS Administered Medications: No medications were administered Disposition Summary: 07/09/22 15:16 Discharge Ordered Location: Home jr11 Condition: Fair jr11 Diagnosis - Hematuria, unspecified jr11 Discharge Instructions: - Discharge Summary Sheet jr11 - Hematuria, Adult jr11 Forms: - Medication Reconciliation Form jr11 - Thank You Letter jr11 - Antibiotic Education jr11 - Prescription Opioid Use jr11 Signatures: Dispatcher [employer] EDMS Marcie Van RN RN Miguel Soriano MD MD jr11 Corrections: (The following items were deleted from the chart) 14:03 13:56 IV Saline Lock ordered. jr11 jr11 14:03 13:56 Labs collected and sent ordered. jr11 jr11
--- NOTE | 2022-07-09 15:17 | ER ---
[facility] Name: Rod Shrestha Age: 72 yrs Sex: Male : 1950 Arrival Date: 07/09/2022 Time: 13:29 Bed 19 Private MD: Diagnosis: Hematuria, unspecified Presentation: 07/09 14:01 Chief complaint: Spouse and/or significant other states: "I know exactly what is wrong. ss His bag got too full and it pulled his catheter out just a bit. I called Dr. Fraser and he said to come to the ER and have it replaced. It's a 16 F coud.". Coronavirus screen: Client denies travel out of the [place] in the last 14 days. Ebola Screen: Patient denies exposure to infectious person. Patient denies travel to an Ebola-affected area in the 21 days before illness onset. Initial Sepsis Screen: Does the patient meet any 2 criteria? No. Patient's initial sepsis screen is negative. Does the patient have a suspected source of infection? No. Patient's initial sepsis screen is negative. Risk Assessment: Do you want to hurt yourself or someone else? Patient reports no desire to harm self or others. Onset of symptoms was July 09, 2022. 14:01 Method Of Arrival: Ambulatory ss 14:01 Acuity: BRETT 4 ss Triage Assessment: 14:00 General: Appears in no apparent distress. Behavior is calm, cooperative. Pain: jg9 Complains of pain in head of penis, shaft of penis and meatus. Historical: - Allergies: 14:05 Codeine; ss 14:05 Fentanyl; ss 14:05 Xanax; ss - PMHx: 14:05 CAD; CHF; Diabetes - IDDM; Hyperlipidemia; Hypertension; ss - PSHx: 14:05 LVAD; ss - Immunization history:: Client reports receiving the 2nd dose of the Covid vaccine. - Social history:: Smoking status: Patient denies any tobacco usage or history of. Screenin:44 Abuse screen: Denies threats or abuse. Denies injuries from another. Nutritional jg9 screening: No deficits noted. Tuberculosis screening: No symptoms or risk factors identified. Fall Risk Mental Status- Overestimates/Forgets Limitations (15 pts.). Assessment: 14:00 Reassessment: No changes from previously documented assessment. Patient and/or family jg9 updated on plan of care and expected duration. Pain level reassessed. Patient is alert, oriented x 3, equal unlabored respirations, skin warm/dry/pink. 15:00 Reassessment: No changes from previously documented assessment. Patient and/or family jg9 updated on plan of care and expected duration. Pain level reassessed. Patient is alert, oriented x 3, equal unlabored respirations, skin warm/dry/pink. patient reports improvement in discomfort after weaver was replaced. Vital Signs: 14:01 BP 145 / 86; Pulse 62; Resp 16; Temp 98.0(TE); Pulse Ox 100% on R/A; Weight 72.12 kg; ss Height 5 ft. 7 in. (170.18 cm); Pain 8/10; 14:30 BP 131 / 98; Pulse 62; Resp 20 S; Pulse Ox 98% on R/A; jg9 14:01 Body Mass Index 24.90 (72.12 kg, 170.18 cm) ED Course: 13:29 Patient arrived in ED. rg4 13:54 Miguel Soriano MD is Attending Physician. 11 14:05 Triage completed. 14:05 Arm band placed on right wrist. 14:30 Weaver cath inserted, using sterile technique, 16 Fr., by ma, balloon inflated, urine jg9 specimen collected. 14:44 Rosa Rocha, RN is Primary Nurse. jg9 14:46 Patient has correct armband on for positive identification. Bed in low position. Call jg9 light in reach. Side rails up X 1. 15:23 No provider procedures requiring assistance completed. jg9 15:23 Patient did not have IV access during this emergency room visit. jg9 Administered Medications: No medications were administered Medication: 15:23 VIS not applicable for this client. jg9 Outcome: 15:16 Discharge ordered by . jr11 15:23 Discharged to home ambulatory. jg9 15:23 Condition: stable 15:23 Discharge instructions given to patient, Instructed on discharge instructions, follow up and referral plans. Demonstrated understanding of instructions, follow-up care. 15:30 Patient left the ED. jg9 Signatures: Marcie Van RN RN Yocasta Murillo 4 Rosa Rocha RN RN jg9 Miguel Soriano MD MD jr11
[2022-07-09 15:46] VITALS: TEMP 98
[2022-07-09 15:49] VITALS: BP 131/98; O2SAT 98
[2022-07-09 17:10] LABS: Urine Bacteria <20 /HPF (<20); Urine RBC >50 /HPF (None Seen)
== END 2022-07-09 15:30 | disposition home or self-care (01) ==
LOC: ER 13:26
DX: R31.9 Hematuria, unspecified (principal); I10 Essential (primary) hypertension; Z88.5 Allergy status to narcotic agent
CPT/HCPCS: 51702; 81003; 81015; 99284

== ENCOUNTER 2022-07-13 18:41 | Emergency (ER) | payer OTHER ==
--- NOTE | 2022-07-13 19:41 | RAD REPORT ---
EXAM DESCRIPTION: CT - Head C Spine Mpr Wo Con - 07/13/2022 7:27 pm CLINICAL HISTORY: Head and neck injury status post fall. Head and neck pain COMPARISON: April 2022 TECHNIQUE: Computed axial tomography of the head and cervical spine was obtained. Sagittal and coronal reconstruction was performed. All CT scans are performed using dose optimization technique as appropriate and may include automated exposure control or mA/KV adjustment according to patient size. FINDINGS: An intracranial bleed is not seen. Moderate low-density areas within periventricular, deep subcortical white matter bilaterally probably ischemic changes secondary small vessel disease. 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 The ventricles are normal in caliber. An extra-axial fluid collection is not noted.Fluid within the visualized sinuses and mastoids is not seen. Chronic s phenoid sinusitis A cervical fracture is not visualized. No dislocation is noted. IMPRESSION: No acute intracranial abnormality is seen. A cervical fracture is not visualized. If the patient continues to have symptoms to suggest intracra nial /spinal cord pathology then MRI would be recommended
--- NOTE | 2022-07-13 19:59 | RAD REPORT ---
EXAM DESCRIPTION: Joe Single View07/13/2022 7:48 pm CLINICAL HISTORY: Chest pain COMPARISON: May 2022 FINDINGS: The lungs appear clear of acute infiltrate. The heart is mildly enlarged. Pacemaker leads place. Chronic elevation right hemidiaphragm
--- NOTE | 2022-07-13 20:01 | RAD REPORT ---
EXAM DESCRIPTION: RAD - Elbow Left 3 View - 07/13/2022 7:48 pm CLINICAL HISTORY: Left elbow pain status post trauma FINDINGS: Limited examination as the patient's elbow was not flexed. No gross fracture or dislocation seen.
[2022-07-13 20:28] LABS: Absolute Lymphocytes (CBC) 0.5 K/uL (0.7-4.9); Hematocrit 30.6 % (39.6-49.0); Lymphocytes % 4.9 % (15.3-44.8); MCV 82.8 fL (80-100); MPV 7.4 fL (7.6-11.3); Protime INR 1.81
[2022-07-13 20:40] LABS: Potassium 4.5 mmol/L (3.5-5.1)
[2022-07-13 21:07] LABS: Urine Blood 1+ (Negative); Urine Glucose 1+ (Negative); Urine Protein 1+ (Negative); Urine pH 5.5 (5.0-7.0)
[2022-07-13] MEDS ORDERED: NA CHLORIDE 0.9% 500 ML ONE (21:45)
--- NOTE | 2022-07-13 22:12 | ER ---
Nurse's Notes [facility] Name: Rod Shrestha Age: 72 yrs Sex: Male : 1950 Arrival Date: 07/13/2022 Time: 18:44 Bed 24 Private MD: Diagnosis: Fall on same level, unspecified;Contusion, Head, Left Elbow;Abrasion, Skin Tear, Left Elbow;Type 2 diabetes mellitus with hyperglycemia Presentation: 07/13 18:45 Chief complaint: EMS states: Toned out for mechanical fall, pt hit left side of head jl7 and left elbow, small laceration and hematoma noted to left side of head and skin tear noted to left elbow, pt A\T\Ox4 on arrival. Care prior to arrival: Bleeding of injury controlled. Injury dressed. Mechanism of Injury: Fall from standing position. Trauma event details: Injury occurred in the [facility], Injury occurred: at home. Injury occurred: July 13, 2022 Injury occurred at: 18:00. 18:45 Acuity: BRETT 2 [facility] 18:45 Method Of Arrival: EMS: [facility] 18:53 Coronavirus screen: Vaccine status: Patient reports receiving the 2nd dose of the covid jl7 vaccine. At this time, the client does not indicate any symptoms associated with coronavirus-19. Ebola Screen: No symptoms or risks identified at this time. Initial Sepsis Screen: Does the patient meet any 2 criteria? No. Patient's initial sepsis screen is negative. Does the patient have a suspected source of infection? No. Patient's initial sepsis screen is negative. Risk Assessment: Do you want to hurt yourself or someone else? Patient reports no desire to harm self or others. Onset of symptoms was July 13, 2022 at 18:00. Triage Assessment: 20:29 General: Appears in no apparent distress. Behavior is appropriate for age. ke1 21:00 Pain: Denies pain. ke1 Historical: - Allergies: 19:01 Codeine; jl7 19:01 Fentanyl; jl7 19:01 Xanax; jl7 - Home Meds: 19:01 digoxin 125 mcg (0.125 mg) Oral tab 1 tab once daily [Active]; ferrous sulfate 325 mg jl7 (65 mg iron) Oral tab daily [Active]; Lantus 100 unit/mL Sub-Q soln 18 unit daily [Active]; Insulin: Novolin R Sub-Q [Active]; losartan 100 mg Oral tab once daily [Active]; Multiple Vitamins Oral tab daily [Active]; Protonix 40 mg Oral TbEC 1 tab 2 times per day [Active]; spironolactone 25 mg Oral tab 0.5 tab once daily [Active]; tamsulosin 0.4 mg Oral cp24 1 cap once daily [Active]; Victoza 2-Tee subcutaneous once daily [Active]; Warfarin Oral [Active]; - PMHx: 19:01 CAD; CHF; Diabetes - IDDM; Hyperlipidemia; Hypertension; jl7 - PSHx: 19:01 LVAD; jl7 - Immunization history: Last tetanus immunization: < 5 years ago. - Social history:: Smoking status: Patient denies any tobacco usage or history of. Screenin:45 Abuse screen: Denies threats or abuse. Denies injuries from another. Tuberculosis jl7 screening: No symptoms or risk factors identified. 07/14 00:19 Nutritional screening: No deficits noted. Fall Risk Fall in past 12 months (25 points). ke1 Primary Survey: 07/13 18:45 NO uncontrolled hemorrhage observed. A: The client is awake and alert. The airway is jl7 patent. The client is alert. Airway: patent. Breathing/Chest: Spontaneous respiratory effort, equal unlabored respirations, breath sounds clear bilaterally, regular pattern, symmetrical chest rise and fall. Respiratory effort: spontaneous, Breath sounds: clear, bilaterally. Respiratory pattern: regular, Chest inspection: symmetrical rise and fall of the chest. Circulation: Hemorrhage: No external hemorrhage noted. Pulses: absent, LVAD pt Skin color: pink, Skin temperature: warm, Heart tones absent. LVAD pt. Disability Pupils are equal, round, reactive to light and accommodation. Client is alert. Exposure/Environment: All clothing and personal items were removed. Forensic evidence collection is not deemed to be indicated at this time. Items placed in patient belonging bag. A warming method has been applied: A warm blanket has been provided to the patient. 21:00 Reassessment Breathing: Respiratory effort Spontaneous Breath sounds Clear Respiratory ke1 pattern Regular. Secondary Survey: 07/14 00:16 HEENT: Head Other laceration left side Face No injury/deformity Eyes: No injury or ke1 deformity noted. Ears: clear bilaterally. Nose: clear to bilateral nares. Throat: No injury or deformity noted. Gastrointestinal: Abdomen is soft, flat, Bowel sounds present in all quadrants. Palpation No deficit noted Patient is incontinent of stool. : Farooq in place Urine is clear. Musculoskeletal: Capillary refill < 3 seconds. Injury Description: Skin tears sustained to left elbow. Vital Signs: 07/13 18:45 BP 140 / 85; Pulse 81; Resp 20 S; Temp 99.3(O); Pulse Ox 94% on R/A; Weight 77.11 kg jl7 (R); Height 5 ft. 7 in. (170.18 cm) (R); Pain 6/10; 23:30 BP 132 / 82; Pulse 80; Resp 17; Pulse Ox 95% on R/A; ke1 18:45 Body Mass Index 26.63 (77.11 kg, 170.18 cm) jl7 [place] Coma Score: 18:45 Eye Response: spontaneous(4). Verbal Response: oriented(5). Motor Response: obeys jl7 commands(6). Total: 15. Trauma Score (Adult): 18:45 Eye Response: spontaneous(1); Verbal Response: oriented(1); Motor Response: obeys jl7 commands(2); Systolic BP: > 89 mm Hg(4); Respiratory Rate: 10 to 29 per min(4); [place] Score: 15; Trauma Score: 12 ED Course: 18:44 Patient arrived in ED. jl7 18:45 Patient has correct armband on for positive identification. Placed in gown. Bed in low jl7 position. Call light in reach. Side rails up X2. 18:45 Patient maintains SpO2 saturation greater than 95% on room air. Thermoregulation: warm jl7 blanket given to patient. 18:46 Roman Lopez DO is Attending Physician. ms3 18:48 Triage completed. jl7 19:03 Attending Physician role handed off by Roman Lopez DO mh7 19:03 Hugo Gardner MD is Attending Physician. mh7 19:06 Halie Ren, NAOMI is Primary Nurse. jl7 19:23 Primary Nurse role handed off by Halie Ren RN mw2 19:30 CT Head C Spine In Process Unspecified. EDMS 19:32 Milli Reyes, NAOMI is Primary Nurse. ke1 19:50 Elbow Left 3 View XRAY In Process Unspecified. EDMS 19:50 XRAY Chest (1 view) In Process Unspecified. EDMS 20:18 Inserted saline lock: 22 gauge in right antecubital area, using aseptic technique. ke1 07/14 00:14 No provider procedures requiring assistance completed. IV discontinued. ke1 Administered Medications: 07/13 23:44 Not Given (Patient Refused; per no need): NS 0.9% 500 ml IV at bolus once ke1 Medication: 07/14 00:19 VIS not applicable for this client. ke1 Outcome: 07/13 22:11 Discharge ordered by . 7 07/14 00:19 Discharged to home via wheelchair, with family. ke1 Condition: good Discharge instructions given to family, 00:22 Patient left the ED. ke1 Signatures: Dispatcher [employer] Halie Kearney RN RN jl7 Romeo Puckett mw2 Roman Lopez DO DO ms3 Hugo Gardner MD MD mh7 Milli Reyes RN RN ke1 Corrections: (The following items were deleted from the chart) 07/13 19:05 18:45 Circulation: Hemorrhage: No external hemorrhage noted. Pulses: palpable right jl7 radial artery and left radial artery. Skin color: pink, Skin temperature: warm, Heart tones present. jl7
--- NOTE | 2022-07-13 22:12 | EDPHYS ---
Physician Documentation [facility] Name: Rod Shrestha Age: 72 yrs Sex: Male : 1950 Arrival Date: 07/13/2022 Time: 18:44 Bed 24 Private MD: ED Physician Hugo Gardner HPI: 07/13 19:24 This 72 yrs old Male presents to ER via EMS with complaints of Fall Injury. ms3 19:24 Details of fall: The patient fell from an upright position, while standing. Onset: The ms3 symptoms/episode began/occurred just prior to arrival. Associated injuries: The patient sustained injury to the head, contusion. Severity of symptoms: At their worst the symptoms were moderate, in the emergency department the symptoms are unchanged. Historical: - Allergies: 19:01 Codeine; jl7 19:01 Fentanyl; jl7 19:01 Xanax; jl7 - Home Meds: 19:01 digoxin 125 mcg (0.125 mg) Oral tab 1 tab once daily [Active]; ferrous sulfate 325 mg jl7 (65 mg iron) Oral tab daily [Active]; Lantus 100 unit/mL Sub-Q soln 18 unit daily [Active]; Insulin: Novolin R Sub-Q [Active]; losartan 100 mg Oral tab once daily [Active]; Multiple Vitamins Oral tab daily [Active]; Protonix 40 mg Oral TbEC 1 tab 2 times per day [Active]; spironolactone 25 mg Oral tab 0.5 tab once daily [Active]; tamsulosin 0.4 mg Oral cp24 1 cap once daily [Active]; Victoza 2-Tee subcutaneous once daily [Active]; Warfarin Oral [Active]; - PMHx: 19:01 CAD; CHF; Diabetes - IDDM; Hyperlipidemia; Hypertension; jl7 - PSHx: 19:01 LVAD; jl7 - Immunization history: Last tetanus immunization: < 5 years ago. - Social history:: Smoking status: Patient denies any tobacco usage or history of. ROS: 19:24 Constitutional: Negative for fever, and chills. Neck: Negative for injury, pain, and ms3 swelling, Cardiovascular: Negative for chest pain, and palpitations. Respiratory: Negative for shortness of breath, cough, wheezing, and pleuritic chest pain, Abdomen/GI: Negative for abdominal pain, nausea, vomiting, diarrhea, and constipation, MS/Extremity: Negative for injury and deformity. 19:24 MS/extremity: Positive for headache. 19:24 Skin: Positive for ecchymosis, of the left head. Exam: 19:24 Constitutional: This is a well developed, well nourished patient who is awake, alert, ms3 and in no acute distress. 19:24 Neck: Trachea midline, no cervical lymphadenopathy. Supple, full range of motion without nuchal rigidity, or vertebral point tenderness. No Meningismus. Chest/axilla: Normal chest wall appearance and motion. Nontender with no deformity. Respiratory: Lungs have equal breath sounds bilaterally, clear to auscultation and percussion. No rales, rhonchi or wheezes noted. No increased work of breathing, no retractions or nasal flaring. Abdomen/GI: Soft, non-tender, with normal bowel sounds. No distension or tympany. No guarding or rebound. No evidence of tenderness throughout. Skin: Warm, dry with normal turgor. Normal color with no rashes, no lesions, and no evidence of cellulitis. 19:24 Head/face: Noted is contusion, that is superficial, of the left church. 19:24 Cardiovascular: LVAD whirl. 19:24 Skin: injury, skin tear left elbow. Vital Signs: 18:45 BP 140 / 85; Pulse 81; Resp 20 S; Temp 99.3(O); Pulse Ox 94% on R/A; Weight 77.11 kg jl7 (R); Height 5 ft. 7 in. (170.18 cm) (R); Pain 6/10; 23:30 BP 132 / 82; Pulse 80; Resp 17; Pulse Ox 95% on R/A; ke1 18:45 Body Mass Index 26.63 (77.11 kg, 170.18 cm) jl7 [place] Coma Score: 18:45 Eye Response: spontaneous(4). Verbal Response: oriented(5). Motor Response: obeys jl7 commands(6). Total: 15. Trauma Score (Adult): 18:45 Eye Response: spontaneous(1); Verbal Response: oriented(1); Motor Response: obeys jl7 commands(2); Systolic BP: > 89 mm Hg(4); Respiratory Rate: 10 to 29 per min(4); [place] Score: 15; Trauma Score: 12 MDM: 18:46 Patient medically screened. ms3 19:24 Differential diagnosis: abrasion, closed head injury, fracture. ms3 22:04 Data reviewed: vital signs, nurses notes, old medical records, lab test result(s), CBC, mh7 electrolytes, urinalysis, radiologic studies, CT scan, plain films. Data interpreted: Pulse oximetry: on room air is 96 %. Interpretation: normal. Counseling: I had a detailed discussion with the patient and/or guardian regarding: the historical points, exam findings, and any diagnostic results supporting the discharge/admit diagnosis, the presence of at least one elevated blood pressure reading (>120/80) during this emergency department visit, lab results, radiology results, the need for outpatient follow up, to return to the emergency department if symptoms worsen or persist or if there are any questions or concerns that arise at home. Response to treatment: the patient's symptoms have markedly improved after treatment. ED course: feels better, NAD, VSS, NVI, no focal neurological deficits. Discussed all test results and findings with the patient and his . They state that his blood glucose is elevated due to him having a coke and sweets. He also has a chronic Farooq catheter and is on Cipro. They request to be discharged home at this time.. 07/13 18:46 Order name: Basic Metabolic Panel; Complete Time: 20:41 ms3 07/13 18:46 Order name: CBC with Diff; Complete Time: 20:41 ms3 07/13 18:47 Order name: PT-INR; Complete Time: 20:41 ms3 07/13 21:08 Order name: Urine Dipstick-Ancillary; Complete Time: 21:22 EDMS 07/13 21:22 Order name: Urine Microscopic Only mh7 07/13 18:46 Order name: CT Head C Spine; Complete Time: 19:56 ms3 07/13 18:46 Order name: XRAY Chest (1 view); Complete Time: 20:02 ms3 07/13 18:46 Order name: Labs collected and sent; Complete Time: 20:19 ms3 07/13 18:46 Order name: Elbow Left 3 View XRAY; Complete Time: 20:02 ms3 07/13 20:42 Order name: Urine Dipstick-Ancillary (obtain specimen); Complete Time: 00:21 [facility] Administered Medications: 23:44 Not Given (Patient Refused; per no need): NS 0.9% 500 ml IV at bolus once ke1 Disposition Summary: 07/13/22 22:11 Discharge Ordered Location: Home [facility] Problem: new [facility] Symptoms: have improved [facility] Condition: Stable [facility] Diagnosis - Fall on same level, unspecified 7 - Contusion, Head, Left Elbow mh7 - Abrasion, Skin Tear, Left Elbow mh7 - Type 2 diabetes mellitus with hyperglycemia [facility] Followup: [facility] - With: Private Physician - When: 1 - 2 days - Reason: Worsening of condition, Recheck today's complaints, Continuance of care, Re-evaluation by your physician Discharge Instructions: - Discharge Summary Sheet [facility] - Hyperglycemia mh7 - Abrasion, [id number]-ys-[id number] mh7 - Skin Tear, Rnni-kc-Pfcd mh7 - Fall Prevention in the Home, Adult, Lygp-bq-Laru mh7 - Facial or Scalp Contusion, Vnae-yq-Rqwy mh7 - Elbow Contusion, Btic-ml-Dzly 7 Forms: - Medication Reconciliation Form [facility] - Thank You Letter [facility] - Antibiotic Education [facility] - Prescription Opioid Use [facility] Signatures: Dispatcher [employer] EDHalie Abebe RN RN 7 Roman Lopez DO DO ms3 Hugo Gardner MD MD 7 Milli Reyes RN ke1
[2022-07-13 23:53] LABS: Urine Bacteria <20 /HPF (<20); Urine RBC <5 /HPF (None Seen); Urine Yeast with Hyphae Moderate /HPF (None Seen)
[2022-07-14 02:00] VITALS: TEMP 99.3
[2022-07-14 02:14] VITALS: BP 132/82; O2SAT 95
== END 2022-07-14 00:22 | disposition home or self-care (01) ==
LOC: ER 18:41
DX: S00.83XA Contusion of other part of head, initial encounter (principal); S50.312A Abrasion of left elbow, initial encounter; W18.30XA Fall on same level, unspecified, initial encounter; E11.65 Type 2 diabetes mellitus with hyperglycemia; I10 Essential (primary) hypertension; I50.9 Heart failure, unspecified; Z79.4 Long term (current) use of insulin; Z88.5 Allergy status to narcotic agent
CPT/HCPCS: 85025; 80048; 36415; 85610; 70450; 72125; 71045; 73080; J7040; 81003; 81015; 99284

== ENCOUNTER 2022-08-12 16:39 | Emergency (ER) | payer OTHER ==
--- NOTE | 2022-08-12 17:57 | RAD REPORT ---
EXAM DESCRIPTION: RAD - Chest Single View - 08/12/2022 5:48 pm CLINICAL HISTORY: COUGH Chest pain. COMPARISON: Chest Single View dated 07/13/2022; Chest Single View dated 06/06/2022; Chest Single View dated 05/04/2022; Chest Single View dated 09/22/2021 FINDINGS: Portable technique limits examination quality. The lungs are grossly clear. The heart is prominent in size with LVAD present. Pacer device noted. St ernotomy wires evident. No displaced fractures. IMPRESSION: No acute intrathoracic process suspected.
[2022-08-12 18:15] LABS: Urine Blood Negative (Negative); Urine Glucose Trace (Negative); Urine Protein Negative (Negative); Urine pH 5.5 (5.0-7.0)
[2022-08-12 18:21] LABS: Absolute Lymphocytes (CBC) 0.8 K/uL (0.7-4.9); Hematocrit 25.6 % (39.6-49.0); Lymphocytes % 11.3 % (15.3-44.8); MCV 81.5 fL (80-100); MPV 7.3 fL (7.6-11.3); Protime INR 1.59; RBC Red Blood Cell Count 3.15 M/uL (4.33-5.43)
[2022-08-12 18:35] LABS: Urine Bacteria <20 /HPF (<20); Urine Crystals Unidentified Few /HPF (None Seen); Urine Mucus Slight /HPF (None Seen); Urine RBC <5 /HPF (None Seen)
[2022-08-12 18:41] LABS: SARS-CoV-2 Antigen Rapid Res Negative (Negative)
[2022-08-12 18:47] LABS: Albumin 3.2 g/dL (3.4-5.0); Bilirubin Direct 0.2 mg/dL (0-0.2); Bilirubin Total 0.4 mg/dL (0.2-1.0); Digoxin Level 1.2 ng/mL (0.80-2.00); Magnesium 1.6 mg/dL (1.8-2.4); Potassium 4.6 mmol/L (3.5-5.1); Protein, Total 6.4 g/dL (6.4-8.2); Troponin High Sensitivity 18.6 pg/mL (<58.9)
--- NOTE | 2022-08-12 19:02 | ER ---
Nurse's Notes [facility] Name: Rod Shrestha Age: 72 yrs Sex: Male : 1950 Arrival Date: 08/12/2022 Time: 16:41 Bed 19 Private MD: Kori Allen C Diagnosis: Weakness;Left ventricular failure-with LVAD;Anemia, unspecified;Hypomagnesemia;UTI/ Urinary tract infection, site not specified;Type 1 diabetes mellitus with hyperglycemia;FPC (current) use of anticoagulants Presentation: 08/12 16:50 Chief complaint: Spouse and/or significant other states: he has recurrent uti's. tw2 recently in [place] until the 31 of July for IV abx. he was supposed to stay until Tuesday but infectious disease said he could switch over to oral medicine. he was doing good. but we finished around the and since then the past 4 days he has gotten really tired to where all he wants to do is sleep. and his blood sugars have been increasing on me. i did increase the lantus it went up. i am thinking he has an infection somewhere and he has been coughing as well. Coronavirus screen: cough unrelated to allergies, fatigue. Coronavirus screen: Client presents with at least one sign or symptom that may indicate coronavirus-19. Standard/surgical mask placed on the client. Provider contacted for isolation considerations. Ebola Screen: Patient denies travel to an Ebola-affected area in the 21 days before illness onset. 16:50 Method Of Arrival: Wheelchair tw2 16:54 Initial Sepsis Screen: Does the patient meet any 2 criteria? No. Patient's initial tw2 sepsis screen is negative. Does the patient have a suspected source of infection? No. Patient's initial sepsis screen is negative. Risk Assessment: Do you want to hurt yourself or someone else? Patient reports no desire to harm self or others. Onset of symptoms was August 12, 2022. 16:54 Acuity: BRETT 2 tw2 16:57 Chief complaint: Spouse and/or significant other states: his weaver was changed 07/31. tw2 Triage Assessment: 16:54 General: Appears in no apparent distress. well groomed, Behavior is calm, cooperative, tw2 appropriate for age. General: Reports fatigue for >3 days. Pain: Denies pain. Respiratory: Reports cough that is. 16:57 : 3-way catheter in place to gravity drainage pt arrives with weaver in place. spouse tw2 reports it was changed 07/31/22 and reports an orange cast into it. Historical: - Allergies: 16:54 Codeine; tw2 16:54 Fentanyl; tw2 16:54 Xanax; tw2 - Home Meds: 16:54 digoxin 125 mcg (0.125 mg) Oral tab 1 tab once daily [Active]; ferrous sulfate 325 mg tw2 (65 mg iron) Oral tab daily [Active]; Insulin: Novolin R Sub-Q [Active]; carvedilol 25 mg oral tab 1 tab 2 times per day [Active]; Lantus 100 unit/mL Sub-Q soln 18 unit daily [Active]; losartan 150 mg Oral tab 1 tab once daily [Active]; Multiple Vitamins Oral tab daily [Active]; tamsulosin 0.4 mg Oral cp24 1 cap once daily [Active]; spironolactone 25 mg Oral tab 0.5 tab once daily [Active]; Protonix 40 mg Oral TbEC 1 tab 2 times per day [Active]; Victoza 2-Tee subcutaneous once daily [Active]; warfarin 3 mg oral tab [Active]; - PMHx: 16:54 CAD; Diabetes - IDDM; Hypertension; Hyperlipidemia; CHF; tw2 - PSHx: 16:54 LVAD; tw2 - Immunization history:: Client reports receiving the 2nd dose of the Covid vaccine. - Social history:: Smoking status: Patient denies any tobacco usage or history of. - Family history:: not pertinent. Screenin:07 Abuse screen: Denies threats or abuse. Denies injuries from another. Nutritional ld1 screening: No deficits noted. Tuberculosis screening: No symptoms or risk factors identified. Fall Risk None identified. Assessment: 18:07 General: Appears in no apparent distress. comfortable, Behavior is calm, cooperative, ld1 appropriate for age. Pain: Denies pain. Neuro: Level of Consciousness is awake, alert, obeys commands, Oriented to person, place, time, situation. Cardiovascular: Capillary refill < 3 seconds Patient's skin is warm and dry. Respiratory: Airway is patent Respiratory effort is even, unlabored. GI: Abdomen is flat, non-distended. : No signs and/or symptoms were reported regarding the genitourinary system. EENT: No signs and/or symptoms were reported regarding the EENT system. Derm: No signs and/or symptoms reported regarding the dermatologic system. Musculoskeletal: No signs and/or symptoms reported regarding the musculoskeletal system. 18:30 Reassessment: Patient and/or family updated on plan of care and expected duration. Pain eh3 level reassessed. Patient is alert, oriented x 3, equal unlabored respirations, skin warm/dry/pink. 19:30 Reassessment: Patient and/or family updated on plan of care and expected duration. Pain eh3 level reassessed. Patient is alert, oriented x 3, equal unlabored respirations, skin warm/dry/pink. 20:30 Reassessment: Patient and/or family updated on plan of care and expected duration. Pain eh3 level reassessed. Patient is alert, oriented x 3, equal unlabored respirations, skin warm/dry/pink. 21:30 Reassessment: Patient and/or family updated on plan of care and expected duration. Pain eh3 level reassessed. Patient is alert, oriented x 3, equal unlabored respirations, skin warm/dry/pink. 22:30 Reassessment: Patient and/or family updated on plan of care and expected duration. Pain eh3 level reassessed. Patient is alert, oriented x 3, equal unlabored respirations, skin warm/dry/pink. Vital Signs: 16:50 BP 112 / 68; Pulse 50; Resp 16; Temp 98.4(TE); Pulse Ox 98% on R/A; Weight 68.95 kg tw2 (R); Height 5 ft. 7 in. (170.18 cm); Pain 0/10; 18:07 BP 109 / 71; Pulse 71; Resp 22; Pulse Ox 100% on R/A; ld1 18:30 BP 100 / 79; Pulse 73; Resp 19; Pulse Ox 100% on R/A; eh3 19:30 BP 105 / 76; Pulse 74; Resp 18; Pulse Ox 97% on R/A; eh3 20:30 BP 113 / 80; Pulse 72; Resp 20; Pulse Ox 99% on R/A; eh3 21:30 BP 113 / 83; Pulse 69; Resp 20; Pulse Ox 99% on R/A; eh3 22:30 BP 116 / 80; Pulse 67; Resp 22; Pulse Ox 100% on R/A; eh3 16:50 Body Mass Index 23.81 (68.95 kg, 170.18 cm) tw2 ED Course: 16:41 Patient arrived in ED. mr 16:41 Kori Allen MD is Private Physician. mr 16:54 Triage completed. tw2 16:54 Arm band placed on. tw2 17:06 Cholo Humphreys MD is Attending Physician. [facility] 17:13 Tigist Nayak, NAOMI is Primary Nurse. ld1 17:50 XRAY Chest (1 view) In Process Unspecified. EDMS 18:06 SARS RAPID Sent. ld1 18:07 Patient has correct armband on for positive identification. Placed in gown. Bed in low ld1 position. Call light in reach. Side rails up X2. personnel monitor on. Pulse ox on. NIBP on. Door closed. Noise minimized. Warm blanket given. 18:07 No provider procedures requiring assistance completed. Inserted saline lock: 20 gauge ld1 in right forearm, using aseptic technique. Blood collected. 18:16 Urine Culture Sent. kc6 18:16 Urine Microscopic Only Sent. kc6 18:18 SARS RAPID Sent. eh3 20:08 Abdomen In Process Unspecified. EDMS 23:16 Patient transferred, IV remains in place. 3 Administered Medications: 18:20 Drug: Meropenem 1 grams Route: IV; Rate: per protocol; Site: right antecubital; 3 19:44 Follow up: Response: No adverse reaction; IV Intake: 100ml 3 19:45 Follow up: Response: No adverse reaction; IV Status: Completed infusion; IV Intake: eh3 100ml 18:20 Drug: NS 0.9% 1000 ml Route: IV; Rate: 125 ml/hr; Site: right antecubital; 3 23:17 Follow up: IV Status: IV converted to saline lock; IV Intake: 500ml 3 18:20 Drug: Pepcid (famotidine) 20 mg Route: IVP; Site: right antecubital; 3 19:01 Follow up: Response: No adverse reaction 3 19:44 Drug: Magnesium Sulfate 1 grams Route: IVPB; Infused Over: 1 hrs; Site: right [facility] antecubital; 21:00 Follow up: Response: No adverse reaction; IV Status: Completed infusion; IV Intake: eh3 100ml Medication: 18:07 VIS not applicable for this client. ld1 Intake: 19:44 IV: 100ml; Total: 100ml. eh3 19:45 IV: 100ml; Total: 200ml. eh3 21:00 IV: 100ml; Total: 300ml. eh3 23:17 IV: 500ml; Total: 800ml. eh3 Output: 23:15 Urine: 1750ml (Weaver); Total: 1750ml. eh3 Outcome: 19:01 ER care complete, transfer ordered by MD. harris 23:16 Transferred by ground EMS to [facility]. eh3 23:16 Condition: stable 23:16 Instructed on the need for transfer. 23:16 Patient left the ED. eh3 Signatures: Dispatcher [employer] EDMS Cholo Humphreys MD MD cha Rivera, Mary Teresa Gates, RN RN tw2 Tigist Nayak RN RN ld1 Natalia Bray RN RN eh3 Cielo Yanez kc6 Corrections: (The following items were deleted from the chart) 19:00 18:59 Reassessment: Patient and/or family updated on plan of care and expected eh3 duration. Pain level reassessed. Patient is alert, oriented x 3, equal unlabored respirations, skin warm/dry/pink. eh3
--- NOTE | 2022-08-12 19:02 | EDPHYS ---
Physician Documentation [facility] Name: Rod Shrestha Age: 72 yrs Sex: Male : 1950 Arrival Date: 08/12/2022 Time: 16:41 Bed 19 Private MD: Kori Allen C ED Physician Cholo Humphreys HPI: 08/12 18:44 This 72 yrs old Male presents to ER via Wheelchair with complaints of kimberly Weakness. 18:44 The patient presents to the emergency department with weakness of the entire body, kimberly generalized weakness. Onset: The symptoms/episode began/occurred 4 day(s) ago. Context: occurred at home. Associated signs and symptoms: Pertinent positives: weakness. Severity of symptoms: At their worst the symptoms were mild moderate in the emergency department the symptoms are unchanged. Patient's baseline: Neuro: alert and fully oriented. Current symptoms: confusion. The patient has experienced similar episodes in the past, multiple times. Historical: - Allergies: 16:54 Codeine; tw2 16:54 Fentanyl; tw2 16:54 Xanax; tw2 - Home Meds: 16:54 digoxin 125 mcg (0.125 mg) Oral tab 1 tab once daily [Active]; ferrous sulfate 325 mg tw2 (65 mg iron) Oral tab daily [Active]; Insulin: Novolin R Sub-Q [Active]; carvedilol 25 mg oral tab 1 tab 2 times per day [Active]; Lantus 100 unit/mL Sub-Q soln 18 unit daily [Active]; losartan 150 mg Oral tab 1 tab once daily [Active]; Multiple Vitamins Oral tab daily [Active]; tamsulosin 0.4 mg Oral cp24 1 cap once daily [Active]; spironolactone 25 mg Oral tab 0.5 tab once daily [Active]; Protonix 40 mg Oral TbEC 1 tab 2 times per day [Active]; Victoza 2-Tee subcutaneous once daily [Active]; warfarin 3 mg oral tab [Active]; - PMHx: 16:54 CAD; Diabetes - IDDM; Hypertension; Hyperlipidemia; CHF; tw2 - PSHx: 16:54 LVAD; tw2 - Immunization history:: Client reports receiving the 2nd dose of the Covid vaccine. - Social history:: Smoking status: Patient denies any tobacco usage or history of. - Family history:: not pertinent. ROS: 18:44 Constitutional: Negative for fever, chills, and weight loss, Eyes: Negative for injury, kimberly pain, redness, and discharge, ENT: Negative for injury, pain, and discharge, Neck: Negative for injury, pain, and swelling, Cardiovascular: Negative for chest pain, palpitations, and edema, Respiratory: Negative for shortness of breath, cough, wheezing, and pleuritic chest pain, Abdomen/GI: Negative for abdominal pain, nausea, vomiting, diarrhea, and constipation, : Negative for injury, bleeding, discharge, and swelling, MS/Extremity: Negative for injury and deformity, Skin: Negative for injury, rash, and discoloration, Psych: Negative for depression, anxiety, suicide ideation, homicidal ideation, and hallucinations, Allergy/Immunology: Negative for hives, rash, and allergies, Endocrine: Negative for neck swelling, polydipsia, polyuria, polyphagia, and marked weight changes, Hematologic/Lymphatic: Negative for swollen nodes, abnormal bleeding, and unusual bruising. 18:44 Back: Positive for 18:44 : Positive for weaver. Exam: 18:44 Constitutional: This is a well developed, well nourished patient who is awake, alert, kimberly and in no acute distress. Head/Face: Normocephalic, atraumatic. Eyes: Pupils equal round and reactive to light, extra-ocular motions intact. Lids and lashes normal. Conjunctiva and sclera are non-icteric and not injected. Cornea within normal limits. Periorbital areas with no swelling, redness, or edema. ENT: Nares patent. No nasal discharge, no septal abnormalities noted. Tympanic membranes are normal and external auditory canals are clear. Oropharynx with no redness, swelling, or masses, exudates, or evidence of obstruction, uvula midline. Mucous membranes moist. Neck: Trachea midline, no thyromegaly or masses palpated, and no cervical lymphadenopathy. Supple, full range of motion without nuchal rigidity, or vertebral point tenderness. No Meningismus. Chest/axilla: Normal chest wall appearance and motion. Nontender with no deformity. No lesions are appreciated. Cardiovascular: Regular rate and rhythm with a normal S1 and S2. No gallops, murmurs, or rubs. Normal PMI, no JVD. No pulse deficits. Respiratory: Lungs have equal breath sounds bilaterally, clear to auscultation and percussion. No rales, rhonchi or wheezes noted. No increased work of breathing, no retractions or nasal flaring. Abdomen/GI: Soft, non-tender, with normal bowel sounds. No distension or tympany. No guarding or rebound. No evidence of tenderness throughout. Back: No spinal tenderness. No costovertebral tenderness. Full range of motion. Skin: Warm, dry with normal turgor. Normal color with no rashes, no lesions, and no evidence of cellulitis. MS/ Extremity: Pulses equal, no cyanosis. Neurovascular intact. Full, normal range of motion. Psych: Awake, alert, with orientation to person, place and time. Behavior, mood, and affect are within normal limits. 18:44 : CVA tenderness, is absent, Male external genitalia: normal, Bladder: is normal, Rectal exam: Sexual behavior: the patient is not sexually active, a weaver is noted. 18:44 Neuro: Orientation: to person, place, time, situation, Mentation: slow to respond, Memory: immediate memory is impaired, remote memory is impaired, recent memory is intact, Cerebellar function: unable to test, Motor: moves all fours, Sensation: no obvious gross deficits, appropriate no acute changes, Gait: not tested. Babinski testing is normal, seizure activity, is not displayed by the patient. 19:06 ECG was reviewed by the Attending Physician. kimberly Vital Signs: 16:50 BP 112 / 68; Pulse 50; Resp 16; Temp 98.4(TE); Pulse Ox 98% on R/A; Weight 68.95 kg tw2 (R); Height 5 ft. 7 in. (170.18 cm); Pain 0/10; 18:07 BP 109 / 71; Pulse 71; Resp 22; Pulse Ox 100% on R/A; ld1 18:30 BP 100 / 79; Pulse 73; Resp 19; Pulse Ox 100% on R/A; eh3 19:30 BP 105 / 76; Pulse 74; Resp 18; Pulse Ox 97% on R/A; eh3 20:30 BP 113 / 80; Pulse 72; Resp 20; Pulse Ox 99% on R/A; eh3 21:30 BP 113 / 83; Pulse 69; Resp 20; Pulse Ox 99% on R/A; eh3 22:30 BP 116 / 80; Pulse 67; Resp 22; Pulse Ox 100% on R/A; eh3 16:50 Body Mass Index 23.81 (68.95 kg, 170.18 cm) tw2 MDM: 17:06 Patient medically screened. [facility] 18:51 Data reviewed: vital signs, nurses notes, lab test result(s), EKG, radiologic studies, [facility] CT scan, plain films. Data interpreted: court monitor: rate is 71 beats/min, rhythm is regular, Pulse oximetry: on room air is 100 %. Test interpretation: by ED physician or midlevel provider: ECG, plain radiologic studies. Counseling: I had a detailed discussion with the patient and/or guardian regarding: the historical points, exam findings, and any diagnostic results supporting the discharge/admit diagnosis, lab results, radiology results. 08/12 17:24 Order name: Basic Metabolic Panel; Complete Time: 18:55 [facility] 08/12 17:24 Order name: CBC with Diff; Complete Time: 18:42 [facility] 08/12 17:24 Order name: LFT's; Complete Time: 18:55 [facility] 08/12 17:24 Order name: Magnesium; Complete Time: 18:55 [facility] 08/12 17:24 Order name: NT PRO-BNP; Complete Time: 18:55 [facility] 08/12 17:24 Order name: PT-INR; Complete Time: 18:42 [facility] 08/12 17:24 Order name: Troponin HS; Complete Time: 18:55 [facility] 08/12 17:24 Order name: Lipase; Complete Time: 18:55 [facility] 08/12 17:24 Order name: Blood Culture Adult (2) [facility] 08/12 17:24 Order name: Lactate; Complete Time: 18:42 [facility] 08/12 17:24 Order name: Urine Culture [facility] 08/12 17:24 Order name: Urine Microscopic Only; Complete Time: 18:42 [facility] 08/12 17:24 Order name: SARS RAPID; Complete Time: 18:42 [facility] 08/12 17:24 Order name: Digoxin; Complete Time: 18:55 [facility] 08/12 17:24 Order name: XRAY Chest (1 view); Complete Time: 18:42 [facility] 08/12 17:24 Order name: EKG; Complete Time: 17:26 [facility] 08/12 17:24 Order name: Cardiac monitoring; Complete Time: 17:30 [facility] 08/12 17:24 Order name: EKG - Nurse/Tech; Complete Time: 17:30 [facility] 08/12 17:24 Order name: IV Saline Lock; Complete Time: 18:06 [facility] 08/12 17:24 Order name: Labs collected and sent; Complete Time: 18:06 [facility] 08/12 17:24 Order name: O2 Per Protocol; Complete Time: 17:29 [facility] 08/12 17:24 Order name: O2 Sat Monitoring; Complete Time: 17:29 [facility] 08/12 17:24 Order name: Urine Dipstick-Ancillary (obtain specimen); Complete Time: 18:16 [facility] 08/12 18:15 Order name: Urine Dipstick-Ancillary; Complete Time: 18:42 EDMS 08/12 18:43 Order name: CT Abd/Pelvis - Without Contrast [facility] 08/12 18:48 Order name: Abdomen EDMS EC:06 Rate is 78 beats/min. Rhythm is regular. QRS [place] is Normal. [place] interval is normal. QRS kimberly interval is prolonged at 180 msec. QT interval is normal. No Q waves. T waves are Normal. No ST changes noted. Clinical impression: Abnormal EKG without significant change. Interpreted by me. Reviewed by me. Administered Medications: 18:20 Drug: Meropenem 1 grams Route: IV; Rate: per protocol; Site: right antecubital; [facility] 19:44 Follow up: Response: No adverse reaction; IV Intake: 100ml [facility] 19:45 Follow up: Response: No adverse reaction; IV Status: Completed infusion; IV Intake: eh3 100ml 18:20 Drug: NS 0.9% 1000 ml Route: IV; Rate: 125 ml/hr; Site: right antecubital; [facility] 23:17 Follow up: IV Status: IV converted to saline lock; IV Intake: 500ml [facility] 18:20 Drug: Pepcid (famotidine) 20 mg Route: IVP; Site: right antecubital; [facility] 19:01 Follow up: Response: No adverse reaction [facility] 19:44 Drug: Magnesium Sulfate 1 grams Route: IVPB; Infused Over: 1 hrs; Site: right [facility] antecubital; 21:00 Follow up: Response: No adverse reaction; IV Status: Completed infusion; IV Intake: eh3 100ml Disposition Summary: 08/12/22 19:01 Transfer Ordered Transfer Location: [facility] kimberly Reason: Higher level of care kimberly Condition: Fair kimberly Problem: an acute exacerbation kimberly Symptoms: have improved kimberly Accepting Physician: to [facility] heart failure team(08/12/22 23:16) 3 Diagnosis - Weakness kimberly - Left ventricular failure - with LVAD kimberly - Anemia, unspecified kimberly - Hypomagnesemia kimberly - UTI/ Urinary tract infection, site not specified kimberly - Type 1 diabetes mellitus with hyperglycemia kimberly - USP (current) use of anticoagulants kimberly Forms: - Medication Reconciliation Form kimberly - SBAR form kimberly Signatures: Dispatcher [employer] EDCholo Wagner MD MD cha Wise, Tara, RN RN tw2 Natalia Bray RN RN eh3 Corrections: (The following items were deleted from the chart) 19:02 19:01 [facility] , heart failure team [place]im[place] kimberly 19:30 19:02 to [facility] , heart failure team kimberly kimberly 19:32 19:30 to [facility] , heart failure team kimberly kimberly 23:16 19:32 to [facility] , heart failure team kimberly 3
[2022-08-12] MEDS ORDERED: MAGNESIUM SULFATE 1 gm IVPB 1 GM/100 ML BAG IV ONE (19:50)
--- NOTE | 2022-08-12 20:13 | RAD REPORT ---
EXAM DESCRIPTION: CT - Abdomen Pelvis Wo Contrast - 08/12/2022 8:06 pm CLINICAL HISTORY: Abdominal pain. Pyelonephritis, uncomplicated COMPARISON: [facility] Protocol dated 06/07/2022 TECHNIQUE: CT imaging of the abdomen and pelvis was performed without contrast. Solid organ, bowel a nd vascular assessment is limited due to lack of IV and oral contrast. All CT scans are performed using dose optimization technique as appropriate and may include automated exposure control or mA/KV adjustment according to patient size. FINDINGS: Mild atelectasis is seen in both posterior lung bases.Left ventricular assist device is pr esent. The liver, spleen, pancreas, adrenal glands and kidneys are within normal limits for a limited non-co ntrast examination.Cholelithiasis. Benign renal cysts bilaterally. No bowel obstruction, free air, free fluid or abscess. Moderate stool is present throughout the colon . The appendix is normal. The osseous structures are within normal limits.Significant enlargement of prostate gland appears uri nary catheter is in place. IMPRESSION: No acute intra-abdominal or pelvic findings. Cholelithiasis. Significant prostatomegaly. A limited non-contrast examination was performed as detailed.
--- NOTE | 2022-08-13 12:32 | EKG ---
Test Date: 2022-08-12 Test Time: 17:33:38 [employer] Technician: BARB MEASUREMENT RESULTS: Intervals: Rate: 71 MA: QRSD: 138 QT: 384 QTc: 417 [place]: P: MA: QRS: -62 T: 90 INTERPRETIVE STATEMENTS: paced rhythm rhythm with frequent and consecutive premature ventricular complexes Left axis deviation Right bundle branch block Possible Lateral infarct, age undetermined Inferior infarct, age undetermined Abnormal ECG Compared to ECG 05/04/2022 22:12:23 Right bundle-branch block now present Atrial premature complex(es) no longer present Myocardial infarct finding still present javascript:[email or web address]'); Electronically Signed On 08-13-22 12:31:45 CDT by Markos Villa
[2022-08-14 07:58] VITALS: TEMP 98.4
[2022-08-14 08:14] VITALS: BP 116/80; O2SAT 100
== END 2022-08-12 23:16 | disposition short-term general hospital (02) ==
LOC: ER 16:39
DX: R53.1 Weakness (principal); I50.1 Left ventricular failure, unspecified; D64.9 Anemia, unspecified; E83.42 Hypomagnesemia; N39.0 Urinary tract infection, site not specified; E10.65 Type 1 diabetes mellitus with hyperglycemia; I10 Essential (primary) hypertension; Z79.01 Long term (current) use of anticoagulants; Z20.822 Contact with and (suspected) exposure to COVID-19
CPT/HCPCS: 96365; 96361; 93005 ×2; 87040 ×2; 87088; 85025; 87086; 80048; 36415; 83735; 85610; 80162; 80076; 83605; 84484; 83690; 83880; 74176; 71045; 96375; 99285; 96366; 87811; J3475; 81003; 81015

== ENCOUNTER 2022-10-04 16:43 | Emergency (ER) | payer OTHER ==
--- NOTE | 2022-10-04 17:12 | RAD REPORT ---
EXAM DESCRIPTION: CT - CTHCSPWOC - 10/04/2022 5:01 pm CLINICAL HISTORY: slurred speech, CVA, fall COMPARISON: Head C Spine Mpr Wo Con dated 07/13/2022 TECHNIQUE: Axial 5 mm thick images of the head were obtained. Axial 2 mm thick images of the cervic al spine were obtained with sagittal and coronal reconstruction images generated and reviewed. All CT scans are performed using dose optimization technique as appropriate and may include automated exposure control or mA/KV adjustment according to patient size. FINDINGS: No intracranial hemorrhage, mass, edema or acute intracranial finding. No acute cortical b ased infarction. Advanced for age atrophy changes are present with ventricles in proportion. Prominen t chronic ischemic changes are present as well. Small old infarction seen in the anterior right front al lobe a moderate-sized area of old infarction in the posteromedial left occipital lobe. No extra-ax ial fluid collections. Intracranial findings are similar to July 13 imaging. Mastoid air cells are clear. Chronic sphenoid right-sided sinusitis. Remaining paranasal sinuses are clear. No globe or orbit abnormality seen. Cervical body height and alignment are normal. C5-6 and C6-7 disc space narrowing present. Scattered facet joint degenerative changes are present. Multilevel bony foraminal encroachment is present. No f racture or acute bony abnormality. No pathologic bone process. Central canal detail is inherently fonseca ited. No paraspinal mass or hematoma. Dense arterial calcifications are present. Images were initially available only in the exception folder which precludes comparison to any prior imaging and precludes dictation of the report. Images were reviewed in this setting with findings tel ephoned to the Liv White in emergency department 1657 hours. IMPRESSION: Advanced atrophy and chronic ischemic change similar to July 13 imaging. No acute intr acranial finding. Cervical spine degenerative change similar to July 13 imaging. No acute finding.
[2022-10-04 17:16] LABS: Protime INR 1.59
--- NOTE | 2022-10-04 17:16 | RAD REPORT ---
EXAM DESCRIPTION: RAD - Chest Single View - 10/04/2022 5:05 pm CLINICAL HISTORY: slurred speech, Stroke protocol chest film COMPARISON: Portable 08/12/2022 TECHNIQUE: AP portable chest image was obtained 10/04/2022 5:05 pm . FINDINGS: Lung volumes are low accentuating the patient's baseline interstitial fibrotic change. Lef t hemidiaphragm elevation is present. No significant failure or volume overload finding seen. An acut e infiltrate is not seen. Heart size is upper normal similar to comparison. 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 LVAD is sti ll in place. No measurable pleural effusion and no pneumothorax. No acute bony abnormality seen. No acute aortic findings suspected. IMPRESSION: Limited portable study without acute cardiopulmonary finding. No significant change from prior imaging.
[2022-10-04 17:23] LABS: SARS-CoV-2 Antigen Rapid Res Negative (Negative)
--- NOTE | 2022-10-04 17:24 | EDPHYS ---
Physician Documentation [facility] Name: Rod Shrestha Age: 72 yrs Sex: Male : 1950 Arrival Date: 10/04/2022 Time: 16:47 Bed 7 Private MD: Kori Allen C ED Physician Luis Lozoya HPI: 10/04 16:54 This 72 yrs old Male presents to ER via Unassigned with complaints of slurred speech. rn 16:54 The patient presents to the emergency department with a speech or higher order brain rn function problem, slurred speech. Onset: The symptoms/episode began/occurred at 16:00. Associated signs and symptoms: Pertinent positives: This patient does not have any pertinent positives. Pertinent negatives: altered mental status, fever, neck stiffness, seizure, syncope, double vision, visual field changes, loss of vision, weakness. Severity of symptoms: At their worst the symptoms were moderate in the emergency department the symptoms are unchanged. Current symptoms: slurred speech. The patient has experienced a previous episode. The patient has not recently seen a physician. EMS reports called 911, noticed a changed at 1600 of slurred speech. EMS had gone out to house earlier for generalized weakness and lift assist, did not have slurred speech at that time. Pt confirms acute onset and just happened. NO trauma. Has LVAD and taking coumadin. NO active bleeding at this time. Has had TIA in past with slurred speech. . Historical: - Allergies: 16:43 Codeine; vg1 16:43 Fentanyl; vg1 16:43 Xanax; vg1 - Home Meds: 16:43 digoxin 125 mcg (0.125 mg) Oral tab 1 tab once daily [Active]; Insulin: Novolin R Sub-Q vg1 [Active]; Protonix 40 mg Oral TbEC 1 tab 2 times per day [Active]; spironolactone 25 mg Oral tab 0.5 tab once daily [Active]; tamsulosin 0.4 mg Oral cp24 1 cap once daily [Active]; warfarin 3 mg Oral tab [Active]; rosuvastatin oral [Active]; Digoxin Oral [Active]; - PMHx: 16:43 CAD; CHF; Diabetes - IDDM; encephalomelacia; Hyperlipidemia; Hypertension; vg1 - PSHx: 16:43 LVAD; vg1 - Immunization history:: Client reports receiving the 2nd dose of the Covid vaccine. - Social history:: Smoking status: Patient denies any tobacco usage or history of. - Family history:: not pertinent. - Hospitalizations: : No recent hospitalization is reported. ROS: 16:54 Constitutional: Negative for fever, chills, and weight loss, Eyes: Negative for injury, rn pain, redness, and discharge, Neck: Negative for injury, pain, and swelling, Cardiovascular: Negative for chest pain, palpitations, and edema, Respiratory: Negative for shortness of breath, cough, wheezing, and pleuritic chest pain, Abdomen/GI: Negative for abdominal pain, nausea, vomiting, diarrhea, and constipation, Back: Negative for injury and pain, MS/Extremity: Negative for injury and deformity, Skin: Negative for injury, rash, and discoloration, Neuro: Negative for headache, weakness, numbness, tingling, and seizure. Exam: 16:54 Constitutional: This is a well developed, well nourished patient who is awake, alert, rn and in no acute distress. Head/Face: Normocephalic, atraumatic. Eyes: Periorbital areas with no swelling, redness, or edema. Cardiovascular: No cyanosis Respiratory: No increased work of breathing, no retractions or nasal flaring. Abdomen/GI: Soft, non-tender, LVAD present Skin: Warm, dry MS/ Extremity: No cyanosis. Neuro: Awake and alert, GCS 15, oriented to person, place, time, and situation. Slurred speech, no facial weakness. EOMI. Motor strength 5/5 in all extremities. Sensory grossly intact. Cerebellar exam normal. 17:25 ECG was reviewed by the Attending Physician. rn Vital Signs: 16:43 BP 138 / 78; Pulse 56; Resp 19; Temp 97.9; Pulse Ox 99% ; Weight 68.49 kg; Height 5 ft. vg1 7 in. (170.18 cm); Pain 0/10; 18:00 BP 131 / 83; Pulse 67; Resp 21; Pulse Ox 97% on R/A; vg1 18:30 BP 119 / 89; Pulse 69; Resp 21; Pulse Ox 99% on R/A; vg1 16:43 Body Mass Index 23.65 (68.49 kg, 170.18 cm) vg1 NIH Stroke Scale Scores: 16:43 NIHSS Score: 1 vg1 17:21 NIHSS Score: 1 rn 17:22 NIHSS Score: 0 vg1 MDM: 16:48 Patient medically screened. rn 16:59 ED course: CT head without acute findings per radiology. . rn 17:05 ED course: Consulted with Dr. Peng, would be TNKase candidate as long as INR < 1.7. rn Awaiting lab value, last 2 INR in ER < 1.7. . 17:21 ED course: Initially NIH 1, for speech, mild, but now completely back to normal, rn here to confirm, patient also states back to normal. Will not give TNKase given that patient with complete resolution of symptoms. and patient agree. They request transfer to [facility] where his heart doctor and rest of team are. . 17:47 Data reviewed: vital signs, nurses notes, lab test result(s), EKG, radiologic studies, rn CT scan, and as a result, I will admit patient. Counseling: I had a detailed discussion with the patient and/or guardian regarding: the historical points, exam findings, and any diagnostic results supporting the discharge/admit diagnosis, lab results, radiology results, the need for further work-up and treatment in the hospital. Response to treatment: the patient's symptoms have resolved after treatment, the patient's condition has returned to base line, and as a result, I will admit patient. ED course: [facility] at saturation, even for ER, and also unable tto take patient to [facility]. Will have to admit here. . 18:12 ED course: Consulted with Dr. Betts, recommended transfer to [facility] because of LVAD, rn but patient and refuse transfer, they are only ok staying here or transfer to [facility]. Spoke with Dr. Peng, ok to keep here, will watch overnight, unable to get MRI, already on statin, on coumadin, just not therapeutic. . 18:56 ED course: Pt is Dr. Allen patient, Dr. Allen contacted, requests that we speak with recording studio intern prior to admission, [facility] system has been contacted and no beds available at more than one institution. . 19:14 ED course: Long discussion with regarding situation currently, was initially rn accepted for admission by hospitalist group, then Dr. Allen identified as PCP, Dr. Allen does not want patient admitted here because of LVAD, even though no problem with LVAD. Spoke with patient and , still do not want to be transferred to another facility. Even offered ER observation since his PCP will not accept admission to this hospital, and they refuse. wants to take patient home since back to normal. This is acceptable given patient's symptoms have completely resolved now, already on coumadin and has been told by his estimator and drafter supervisor due to bleeding reasons his strict INR goal is 1.5-1.8 which he is at goal currently. Already on statin. Can't get MRI 2/2 LVAD. and patient understand risks of not being transferred/admitted/observed, and both want to go home. and patient thankful and appreciative. . 19:19 ED course: Contacted materials handling coordinator, she contacted ER and transfer center, also rn unable to make a bed open. . 10/04 16:48 Order name: Basic Metabolic Panel; Complete Time: 17:36 rn 10/04 16:48 Order name: CBC with Diff; Complete Time: 17:36 rn 10/04 16:48 Order name: High Sensitivity Troponin; Complete Time: 17:36 rn 10/04 16:48 Order name: Protime (+inr); Complete Time: 17:21 rn 10/04 16:48 Order name: Ptt, Activated; Complete Time: 17:21 rn 10/04 16:48 Order name: SARS RAPID; Complete Time: 17:27 rn 10/04 16:48 Order name: Stroke CXR 1 View; Complete Time: 17:21 rn 10/04 16:48 Order name: EKG; Complete Time: 16:50 rn 10/04 16:48 Order name: Accucheck; Complete Time: 17:07 rn 10/04 16:56 Order name: Head C Spine Mpr Wo Con; Complete Time: 17:13 EDMS 10/04 17:09 Order name: Glucose, Ancillary Testing; Complete Time: 17:12 EDMS 10/04 17:40 Order name: Magnesium; Complete Time: 18:08 vg1 10/04 16:48 Order name: Cardiac monitoring; Complete Time: 17:07 rn 10/04 16:48 Order name: EKG - Nurse/Tech; Complete Time: 17:07 rn 10/04 16:48 Order name: IV Saline Lock; Complete Time: 17:07 rn 10/04 16:48 Order name: Labs collected and sent; Complete Time: 17: rn 10/04 16:48 Order name: NPO; Complete Time: 17: rn 10/04 16:48 Order name: O2 Per Protocol; Complete Time: 17: rn 10/04 16:48 Order name: O2 Sat Monitoring; Complete Time: 17: rn 10/04 16:48 Order name: Stroke Swallow Screen; Complete Time: 17: rn EC:25 Rate is 63 beats/min. Rhythm is regular. Left axis deviation noted. QRS is positive in rn lead I and negative in lead aVF. QRS interval is prolonged at 146 msec. QT interval is normal. No Q waves. T waves are Normal. No ST changes noted. Clinical impression: Paced rhythm, LAD. Interpreted by me. Reviewed by me. Administered Medications: 17:40 CANCELLED (Inappropriate at this time): Magnesium 400 mg PO once vg1 Point of Care Testing: Blood Glucose: 17:00 Blood Glucose: 197 mg/dL; vg1 Ranges: Critical Glucose Levels:Adult <50 mg/dl or >400 mg/dl <40 mg/dl or >180 mg/dl Disposition Summary: 10/04/22 19:14 Discharge Ordered Location: Home(10/04/22 19:14) rn Problem: new(10/04/22 19:14) rn Symptoms: are resolved(10/04/22 19:14) rn Condition: Stable(10/04/22 19:14) rn Diagnosis - Transient cerebral ischemic attack, unspecified(10/04/22 19:14) rn - Slurred speech(10/04/22 19:14) rn Followup: rn - With: Kori Allen MD - When: 1 - 2 days - Reason: Recheck today's complaints, Re-evaluation by your physician Discharge Instructions: - Discharge Summary Sheet rn - Stroke men's furnishings salesperson - Transient Ischemic Attack rn Forms: - Medication Reconciliation Form rn - Thank You Letter rn - Antibiotic cuff turner - Prescription Opioid Use rn NIH Stroke Scale - NIH Stroke Score Date: 10/04/2022 Time: 16:43 Total Score = 1 1a. Level of Consciousness (LOC) - 0(Alert) 1b. Level of Consciousness (LOC) (Month \T\ Age) - 0(Both) 1c. LOC Commands (Open \T\ Closes Eyes/Lubrication Equipment Servicer) - 0(Both) 2. Best Gaze (Lateral Gaze Paresis) - 0(Normal) 3. Visual Field Loss - 0(No visual loss) 4. Facial Palsy - 0(Normal) 5a. Left Arm: Motor (10-second hold) - 0(No drift) 5b. Right Arm: Motor (10-second hold) - 0(No drift) 6a. Left Leg: Motor (5-second hold - always test supine) - 0(No drift) 6b. Right Leg: Motor (5-second hold - always test supine) - 0(No drift) 7. Limb Ataxia (finger/nose \T\ heel/de jesus - test with eyes open) - 0(Absent) 8. Sensory Loss (pinprick arms/legs/face) - 0(Normal) 9. Best Language: Aphasia (description/naming/reading) - 1(Mild to moderate aphasia) 10. Dysarthria (speech clarity - read or repeat words) - 0(Normal) 11. Extinction and Inattention (visual/tactile/auditory/spatial/personal) - 0(No abnormality) Initials: vg1 NIH Stroke Scale - NIH Stroke Score Date: 10/04/2022 Time: 17:21 Total Score = 1 1a. Level of Consciousness (LOC) - 0(Alert) 1b. Level of Consciousness (LOC) (Month \T\ Age) - 0(Both) 1c. LOC Commands (Open \T\ Closes Eyes/Lubrication Equipment Servicer) - 0(Both) 2. Best Gaze (Lateral Gaze Paresis) - 0(Normal) 3. Visual Field Loss - 0(No visual loss) 4. Facial Palsy - 0(Normal) 5a. Left Arm: Motor (10-second hold) - 0(No drift) 5b. Right Arm: Motor (10-second hold) - 0(No drift) 6a. Left Leg: Motor (5-second hold - always test supine) - 0(No drift) 6b. Right Leg: Motor (5-second hold - always test supine) - 0(No drift) 7. Limb Ataxia (finger/nose \T\ heel/de jesus - test with eyes open) - 0(Absent) 8. Sensory Loss (pinprick arms/legs/face) - 0(Normal) 9. Best Language: Aphasia (description/naming/reading) - 0(No aphasia) 10. Dysarthria (speech clarity - read or repeat words) - 1(Mild to Moderate) 11. Extinction and Inattention (visual/tactile/auditory/spatial/personal) - 0(No abnormality) Initials: ricardo NIH Stroke Scale - NIH Stroke Score Date: 10/04/2022 Time: 17:22 Total Score = 0 1a. Level of Consciousness (LOC) - 0(Alert) 1b. Level of Consciousness (LOC) (Month \T\ Age) - 0(Both) 1c. LOC Commands (Open \T\ Closes Eyes/Lubrication Equipment Servicer) - 0(Both) 2. Best Gaze (Lateral Gaze Paresis) - 0(Normal) 3. Visual Field Loss - 0(No visual loss) 4. Facial Palsy - 0(Normal) 5a. Left Arm: Motor (10-second hold) - 0(No drift) 5b. Right Arm: Motor (10-second hold) - 0(No drift) 6a. Left Leg: Motor (5-second hold - always test supine) - 0(No drift) 6b. Right Leg: Motor (5-second hold - always test supine) - 0(No drift) 7. Limb Ataxia (finger/nose \T\ heel/de jesus - test with eyes open) - 0(Absent) 8. Sensory Loss (pinprick arms/legs/face) - 0(Normal) 9. Best Language: Aphasia (description/naming/reading) - 0(No aphasia) 10. Dysarthria (speech clarity - read or repeat words) - 0(Normal) 11. Extinction and Inattention (visual/tactile/auditory/spatial/personal) - 0(No abnormality) Initials: vg1 Signatures: Dispatcher [employer] EDMS Luis Lozoya MD MD rn Garcia, Victoria RN RN vg1 Corrections: (The following items were deleted from the chart) 16:56 16:52 CT-STROKE BRAIN W/O CONTRAST+CT.RAD.BRZ ordered. EDMS EDMS 17:12 16:43 PMHx: LVAD; vg1 vg1 17:40 17:40 Magnesium 400 mg PO once ordered. vg1 vg1 :48 17:23 rn rn : 17:23 [facility] rn rn : 17:23 Higher level of care rn rn : 17:23 Stable rn rn 17:23 new rn rn 17:48 17:23 are resolved rn rn 17:48 17:23 Transient cerebral ischemic attack, unspecified rn rn 17:48 17:23 Slurred speech rn rn 19:14 17:50 Observation rn rn : 17:50 Sp Betts rn rn 19:14 17:50 Telemetry/MedSurg (observation) rn rn : 17:50 Stable rn rn : 17:50 new rn rn : 17:50 have improved rn rn : 17:50 Standard rn rn : 17:50 rn rn :14 17:50 Transient cerebral ischemic attack, unspecified rn rn : 17:50 Slurred speech rn rn
--- NOTE | 2022-10-04 17:24 | ER ---
Nurse's Notes [facility] Name: Rod Shrestha Age: 72 yrs Sex: Male : 1950 Arrival Date: 10/04/2022 Time: 16:47 Bed 7 Private MD: Kori Allen C Diagnosis: Transient cerebral ischemic attack, unspecified;Slurred speech Presentation: 10/04 16:43 Chief complaint: EMS states: Called out this morning for lift assistance and pt 'seemed vg1 to be normal'. Toned out for slurred speech, confusion and weakness according to that began today at 1600. Pt was recently dx with UTI and has a 16 F weaver placed as well as a LVAD to Q. 16:43 Coronavirus screen: Vaccine status: Patient reports receiving the 2nd dose of the covid vg1 vaccine. Client denies travel out of the [place] in the last 14 days. Ebola Screen: Patient negative for fever greater than or equal to 101.5 degrees Fahrenheit, and additional compatible Ebola Virus Disease symptoms Patient denies exposure to infectious person. An acute neurological deficit is present. The charge nurse has been notified. The patients blood glucose was checked before arriving to the hospital and was found to be normal. Initial Sepsis Screen: Does the patient meet any 2 criteria? No. Patient's initial sepsis screen is negative. Does the patient have a suspected source of infection? No. Patient's initial sepsis screen is negative. Risk Assessment: Do you want to hurt yourself or someone else? Patient reports no desire to harm self or others. Onset of symptoms was October 04, 2022 at 16:00. 16:43 Method Of Arrival: EMS: [facility] 1 16:43 Acuity: BRETT 2 vg1 16:43 Care prior to arrival: IV initiated. 20 GA, in the left forearm, Glucose check: 124. vg1 Triage Assessment: 16:43 The onset of the patients symptoms was less than three hours ago. General: Appears in vg1 no apparent distress. uncomfortable, Behavior is calm, cooperative. Pain: Denies pain. EENT: No deficits noted. Neuro: Level of Consciousness is awake, alert, obeys commands, Oriented to person, place, time, situation, Engagement Engineer are equal bilaterally Moves all extremities. Gait is unsteady, Speech is slurred, Facial symmetry appears normal. Neuro: Reports denies weakness, headache, dizziness, blurred vision.. Cardiovascular: Patient's skin is warm and dry. Respiratory: Airway is patent Respiratory effort is even, unlabored. GI: Abdomen is flat, non-distended. : Weaver in place to gravity drainage. Derm: Skin is pink, warm \T\ dry. Musculoskeletal: Circulation, motion, and sensation intact. 16:43 The onset of the patients symptoms was October 04, 2022 at 16:00. vg1 Stroke Activation: Symptom onset < 3 hours Physician: Stroke Attending; Name: ; Notified At: ; Arrived At: Physician: Chief Stroke Resident; Name: ; Notified At: ; Arrived At: Physician: Stroke Resident; Name: ; Notified At: ; Arrived At: Physician: ED Attending; Name: ; Notified At: ; Arrived At: Physician: ED Resident; Name: ; Notified At: ; Arrived At: Historical: - Allergies: 16:43 Codeine; vg1 16:43 Fentanyl; vg1 16:43 Xanax; vg1 - Home Meds: 16:43 digoxin 125 mcg (0.125 mg) Oral tab 1 tab once daily [Active]; Insulin: Novolin R Sub-Q vg1 [Active]; Protonix 40 mg Oral TbEC 1 tab 2 times per day [Active]; spironolactone 25 mg Oral tab 0.5 tab once daily [Active]; tamsulosin 0.4 mg Oral cp24 1 cap once daily [Active]; warfarin 3 mg Oral tab [Active]; rosuvastatin oral [Active]; Digoxin Oral [Active]; - PMHx: 16:43 CAD; CHF; Diabetes - IDDM; encephalomelacia; Hyperlipidemia; Hypertension; vg1 - PSHx: 16:43 LVAD; vg1 - Immunization history:: Client reports receiving the 2nd dose of the Covid vaccine. - Social history:: Smoking status: Patient denies any tobacco usage or history of. - Family history:: not pertinent. - Hospitalizations: : No recent hospitalization is reported. Screenin:00 Abuse screen: Denies threats or abuse. Nutritional screening: No deficits noted. vg1 Tuberculosis screening: No symptoms or risk factors identified. Fall Risk Fall in past 12 months (25 points). Secondary diagnosis (15 points) TIA, IV access (20 points). Ambulatory Aid- Crutches/Cane/Walker (15 pts). Gait- Weak (10 pts.). Mental Status- Oriented to own ability (0 pts). Total Carroll Fall Scale indicates High Risk Score (45 or more points). Fall prevention measures have been instituted. Side Rails Up X 2 Placed Close to Nursing Station Family Present and informed to notify staff if the need to leave the bedside As available patient and family educated on Fall Prevention Program and Strategies. Assessment: 16:43 Reassessment: SEE TRIAGE. vg1 17:00 VAN Scoring: Arm Drift: Patients demonstrates NO arm weakness. Patient is VAN Negative. vg1 Visual Disturbance: No visual disturbance noted. Neglect: No neglect noted. The patient has not been NPO before screening. The patient is alert, and able to follow commands. The patient exhibits slurred or garbled speech. The patient is not exhibiting difficulty speaking. The patient does not exhibit difficulty understanding words. The patient is able to swallow own secretions with no drooling or need for suction. Patient tolerated one teaspoon of water. No drooling, immediate coughing, gurgling, or clearing of the throat was noted. The patient tolerated 90mL of water. No drooling, immediate coughing, gurgling, or clearing of the throat was noted. The patient passed the bedside swallow screening. Oral medications may be given as ordered. Contact Physician for further diet orders. Provider notified of bedside swallow screening results: Luis Lozoya MD. Reassessment: SEE TRIAGE. 17:00 TNKase (Tenecteplase) Screening: Contraindications: Is the patient on Aspirin, Heparin, vg1 or Warfarin: Yes. 17:15 Reassessment: Weaver placed outpatient on Thursday September 29, 2022. vg1 17:40 Reassessment: Patient appears in no apparent distress at this time. Patient and/or vg1 family updated on plan of care and expected duration. Pain level reassessed. Patient is alert, oriented x 3, equal unlabored respirations, skin warm/dry/pink. Patient states feeling better. 18:40 Reassessment: Patient appears in no apparent distress at this time. No changes from vg1 previously documented assessment. Patient and/or family updated on plan of care and expected duration. Pain level reassessed. Patient is alert, oriented x 3, equal unlabored respirations, skin warm/dry/pink. Patient denies pain at this time. 18:52 Reassessment: PHONE NUMBER, Kenyatta [phone]. vg1 Vital Signs: 16:43 BP 138 / 78; Pulse 56; Resp 19; Temp 97.9; Pulse Ox 99% ; Weight 68.49 kg; Height 5 ft. vg1 7 in. (170.18 cm); Pain 0/10; 18:00 BP 131 / 83; Pulse 67; Resp 21; Pulse Ox 97% on R/A; vg1 18:30 BP 119 / 89; Pulse 69; Resp 21; Pulse Ox 99% on R/A; vg1 16:43 Body Mass Index 23.65 (68.49 kg, 170.18 cm) vg1 NIH Stroke Scale Scores: 16:43 NIHSS Score: 1 vg1 17:21 NIHSS Score: 1 rn 17:22 NIHSS Score: 0 vg1 ED Course: 16:47 Patient arrived in ED. rn 16:48 Luis Lozoya MD is Attending Physician. rn 16:58 Inserted saline lock: 18 gauge in right forearm, using aseptic technique. Blood mb9 collected. 17:00 Arm band placed on. EKG completed in triage. Results shown to MD. vg1 17:00 Patient has correct armband on for positive identification. Placed in gown. Bed in low vg1 position. Call light in reach. Side rails up X2. Adult w/ patient. Client placed on continuous cardiac and pulse oximetry monitoring. NIBP monitoring applied. 17:02 Head C Spine Mpr Wo Con In Process Unspecified. EDMS 17:06 Stroke CXR 1 View In Process Unspecified. EDMS 17:06 Gris Murillo, RN is Primary Nurse. vg1 17:10 Triage completed. vg1 17:31 initiated transfer to [facility]. bd 17:45 pt denied at [facility] due to no lvat beds and er being on saturation, per Stephany. bd 17:49 Sp Betts MD is Hospitalizing Provider. rn 18:51 Kori Allen MD is Private Physician. bd 19:14 Kori Allen MD is Referral Physician. rn 19:41 Primary Nurse role handed off by Gris Murillo RN wm 19:44 No provider procedures requiring assistance completed. IV discontinued, intact, ll3 bleeding controlled, No redness/swelling at site. Pressure dressing applied. Administered Medications: 17:40 CANCELLED (Inappropriate at this time): Magnesium 400 mg PO once vg1 Medication: 17:00 VIS not applicable for this client. vg1 Point of Care Testing: Blood Glucose: 17:00 Blood Glucose: 197 mg/dL; vg1 Ranges: Outcome: 17:23 ER care complete, transfer ordered by MD. rn 17:50 Decision to Hospitalize by Provider. rn 19:14 Discharge ordered by MD. rn 19:44 Discharged to home via wheelchair, with family, with significant other. ll3 19:44 Condition: stable 19:44 Discharge instructions given to patient, significant other, Instructed on discharge instructions, follow up and referral plans. Demonstrated understanding of instructions, follow-up care. 19:45 Patient left the ED. ll3 NIH Stroke Scale - NIH Stroke Score Date: 10/04/2022 Time: 16:43 Total Score = 1 1a. Level of Consciousness (LOC) - 0(Alert) 1b. Level of Consciousness (LOC) (Month \T\ Age) - 0(Both) 1c. LOC Commands (Open \T\ Closes Eyes/Needle Loom Tender) - 0(Both) 2. Best Gaze (Lateral Gaze Paresis) - 0(Normal) 3. Visual Field Loss - 0(No visual loss) 4. Facial Palsy - 0(Normal) 5a. Left Arm: Motor (10-second hold) - 0(No drift) 5b. Right Arm: Motor (10-second hold) - 0(No drift) 6a. Left Leg: Motor (5-second hold - always test supine) - 0(No drift) 6b. Right Leg: Motor (5-second hold - always test supine) - 0(No drift) 7. Limb Ataxia (finger/nose \T\ heel/de jesus - test with eyes open) - 0(Absent) 8. Sensory Loss (pinprick arms/legs/face) - 0(Normal) 9. Best Language: Aphasia (description/naming/reading) - 1(Mild to moderate aphasia) 10. Dysarthria (speech clarity - read or repeat words) - 0(Normal) 11. Extinction and Inattention (visual/tactile/auditory/spatial/personal) - 0(No abnormality) Initials: vg1 NIH Stroke Scale - NIH Stroke Score Date: 10/04/2022 Time: 17:21 Total Score = 1 1a. Level of Consciousness (LOC) - 0(Alert) 1b. Level of Consciousness (LOC) (Month \T\ Age) - 0(Both) 1c. LOC Commands (Open \T\ Closes Eyes/Needle Loom Tender) - 0(Both) 2. Best Gaze (Lateral Gaze Paresis) - 0(Normal) 3. Visual Field Loss - 0(No visual loss) 4. Facial Palsy - 0(Normal) 5a. Left Arm: Motor (10-second hold) - 0(No drift) 5b. Right Arm: Motor (10-second hold) - 0(No drift) 6a. Left Leg: Motor (5-second hold - always test supine) - 0(No drift) 6b. Right Leg: Motor (5-second hold - always test supine) - 0(No drift) 7. Limb Ataxia (finger/nose \T\ heel/de jesus - test with eyes open) - 0(Absent) 8. Sensory Loss (pinprick arms/legs/face) - 0(Normal) 9. Best Language: Aphasia (description/naming/reading) - 0(No aphasia) 10. Dysarthria (speech clarity - read or repeat words) - 1(Mild to Moderate) 11. Extinction and Inattention (visual/tactile/auditory/spatial/personal) - 0(No abnormality) Initials: ricardo NIH Stroke Scale - NIH Stroke Score Date: 10/04/2022 Time: 17:22 Total Score = 0 1a. Level of Consciousness (LOC) - 0(Alert) 1b. Level of Consciousness (LOC) (Month \T\ Age) - 0(Both) 1c. LOC Commands (Open \T\ Closes Eyes/Needle Loom Tender) - 0(Both) 2. Best Gaze (Lateral Gaze Paresis) - 0(Normal) 3. Visual Field Loss - 0(No visual loss) 4. Facial Palsy - 0(Normal) 5a. Left Arm: Motor (10-second hold) - 0(No drift) 5b. Right Arm: Motor (10-second hold) - 0(No drift) 6a. Left Leg: Motor (5-second hold - always test supine) - 0(No drift) 6b. Right Leg: Motor (5-second hold - always test supine) - 0(No drift) 7. Limb Ataxia (finger/nose \T\ heel/de jesus - test with eyes open) - 0(Absent) 8. Sensory Loss (pinprick arms/legs/face) - 0(Normal) 9. Best Language: Aphasia (description/naming/reading) - 0(No aphasia) 10. Dysarthria (speech clarity - read or repeat words) - 0(Normal) 11. Extinction and Inattention (visual/tactile/auditory/spatial/personal) - 0(No abnormality) Initials: vg1 Signatures: Dispatcher [employer] EDAdilene Briggs Roman, MD MD rn Chidi, Gris RN RN vg1 Evelia Coe Lynsea RN RN ll3 Corry Adkins, RN RN mb9 Corrections: (The following items were deleted from the chart) 17:12 16:43 PMHx: LVAD; vg1 vg1 17:46 17:44 pt denied at [facility] due to no LVAT beds and er being on saturation. bd bd
[2022-10-04 17:28] LABS: Hematocrit 31.8 % (39.6-49.0); Lymphocytes % 9.6 % (15.3-44.8); MCV 84.7 fL (80-100); Potassium 4.5 mmol/L (3.5-5.1); RBC Red Blood Cell Count 3.76 M/uL (4.33-5.43); Troponin High Sensitivity 27.8 pg/mL (<58.9)
[2022-10-04 20:27] VITALS: TEMP 97.9
[2022-10-04 20:29] VITALS: BP 119/89; O2SAT 99
--- NOTE | 2022-10-05 13:57 | EKG ---
Test Date: 2022-10-04 Test Time: 16:57:02 Gas Turbine Assembler: MEASUREMENT RESULTS: Intervals: Rate: 63 AK: QRSD: 146 QT: 442 QTc: 452 Gardner: P: AK: QRS: -60 T: 115 INTERPRETIVE STATEMENTS: V paced. Electronically Signed On 10-05-22 13:55:35 FOCUSER by Ang Vila
== END 2022-10-04 19:45 | disposition home or self-care (01) ==
LOC: ER 16:43
DX: G45.9 Transient cerebral ischemic attack, unspecified (principal); I10 Essential (primary) hypertension; I50.9 Heart failure, unspecified; E11.9 Type 2 diabetes mellitus without complications; Z79.01 Long term (current) use of anticoagulants; Z79.4 Long term (current) use of insulin; Z88.5 Allergy status to narcotic agent; Z20.822 Contact with and (suspected) exposure to COVID-19
CPT/HCPCS: 36415; 70450; 71045; 72125; 80048; 82947; 83735; 84484; 85025; 85610; 85730; 87811; 93005; 99284